=== PATIENT | female | born 2000 | race Two or more races ===

== ENCOUNTER 2018-08-12 23:27 | Observation (INO) | payer OTHER ==
[2018-08-13] MEDS ORDERED: METOCLOPRAMIDE HCL INJECTION 10 MG/2 ML VIAL IVPUSH STA (00:14)
[2018-08-13] MEDS ORDERED: SODIUM CHLORIDE 1,000 ML IV ONE (00:14)
[2018-08-13] MEDS ORDERED: IBUPROFEN 600 MG TABLET (FP) PO ONE (00:17)
--- NOTE | 2018-08-13 00:21 | PDOC ---
History of Present Illness - General Chief Complaint: Migraine Headache Stated Complaint: Migraine/Chest Pain Time Seen by Provider: 08/12/18 23:31 History Source: Patient Exam Limitations: No Limitations - History of Present Illness Initial Comments: 17 yo F w a pmh of migraines and scoliosis presents to the ER stating she has a migraine headache and chest pain. She reports that her symptoms began at 4 pm today. She began getting a headache and then her chest pain started. She states that she frequently gets these migraines and they are always associated with chest pain. Usually she is able to take a hot shower which makes her migraine go away. Today, However, she felt like she was in too much discomfort and couldn 't take a warm shower. She states the chest pain is not associated with nausea, vomiting, diaphoresis, or physical exertion. The chest pain comes on at rest out of the blue whenever she gets these migraines. This headache is not the worst headache of her life. She says that seeing light or hearing loud noise are painful for her and make her headache worse. She denies recent fevers, chills, infections, dysuria, frequency, urgency, back pain, SOB, difficulty breathing, abdominal pain, diarrhea, constipation, leg pain. PSH: Back surgery for scoliosis Allergies: NKA, NKDA Social Hx: Denies smoking, drinking, or other substance usage. Past History - Suicide/Smoking/Psychosocial Hx Smoking History: Never smoked Have you smoked in the past 12 months: No Information on smoking cessation initiated: No Hx Alcohol Use: No Drug/Substance Use Hx: No Review of Systems - Review of Systems Able to Perform ROS?: Yes Comments:: CONSTITUTIONAL: Absent: fever, no chills, no fatigue EYES: Absent: visual changes ENT: Absent: ear pain, no sore throat CARDIOVASCULAR: Present: Chest pain Absent: no palpitations RESPIRATORY: Absent: cough, no SOB GI: Absent: abdominal pain, no nausea, no vomiting, no constipation, no diarrhea GENITOURINARY: Absent: dysuria, no frequency, no hematuria MUSKULOSKELETAL: Absent: back pain, no arthralgia, no myalgia SKIN: Absent: rash NEURO: Present: Headache *Physical Exam - Vital Signs Last Vital Signs Temp Pulse Resp BP Pulse Ox 97.6 F 75 18 141/70 100 08/12/18 23:39 08/12/18 23:39 08/12/18 23:39 08/12/18 23:39 08/12/18 23:39 - Physical Exam Comments: GENERAL: Well-appearing, well-nourished. No apparent distress. HEENT: Normocephalic, atraumatic. PERRL, EOM intact. CARDIOVASCULAR: Normal S1, S2. Regular rate and rhythm. PULMONARY: Clear to auscultation bilaterally. ABDOMEN: Soft, non-distended, non-tender. EXTREMITIES: Normal ROM in all four extremities. No gross deformities. SKIN: Warm, dry. No rash NEUROLOGICAL: No focal neurological deficits. Moderate Sedation - Procedure Monitoring Vital Signs: Procedure Monitoring Vital Signs Temperature 97.6 F 08/12/18 23:39 Pulse Rate 75 08/12/18 23:39 Respiratory Rate 18 08/12/18 23:39 Blood Pressure 141/70 08/12/18 23:39 O2 Sat by Pulse Oximetry (%) 100 08/12/18 23:39 ED Treatment Course - LABORATORY CBC & Chemistry Diagram: 08/13/18 00:57 08/13/18 00:57 Medical Decision Making - Medical Decision Making 17 yo F w a pmh of migraines and scoliosis presents to the ER stating she has a migraine headache and chest pain. - Vitals WNL DDx IBNLT: Migraine vs tension vs cluster headache, SAH, Pseudotumor cerebri, ACS, MSK chest pain, malingering, costochondritis, pneumothorax. Plan: Cbc, Cmp, Cardiac profile, HCG, UA, EKG, IV hydration, reglan, benadryl, ibuprofen, re-assess. CBC shows elevated wbc to 12.1 with a neutrophilic predominance. I suspect this is a migraine headache. - Will get Trop and EKG to rule out cardio sources of the chest pain. - Giving patient Migraine cocktail and plan to re-assess her and see how she is doing afterwards. *DC/Admit/Observation/Transfer Diagnosis at time of Disposition: Migraine - Discharge Dispostion Disposition: HOME Condition at time of disposition: Improved Decision to Admit order: No - Referrals Referrals: Lai Johnson [Primary Care Provider] - Pablo Fischer MD [Staff Physician] - - Patient Instructions Printed Discharge Instructions: DI for Migraine, DI for Headache Additional Instructions: You came into the ER with a headache and chest pain. We believe you are having a migraine. We gave you some meds and you felt better. ' It is very important for you to follow up with a neurologist to figure out why you are getting these headaches. We are attaching the number of a neurologist for you to call and schedule an appointment with to figure out why you are experiencing these migraines. Please make sure to schedule an appointment in the next few days. Come back to the ER if your pain worsens, you get a fever, start vomiting, can' t eat or drink, or have any other new or worsening concerns. Thank you for coming to the [facility] ER. We hope you feel better soon! Print Language: SWISS - Post Discharge Activity
[2018-08-13] MEDS ORDERED: ACETAMINOPHEN 1000 MG/100 ML VIAL (NON FORMULARY) IVPB ONE (00:34)
[2018-08-13 01:31] LABS: BASO % 0.1 % (0-2.0); HEMATOCRIT 40.4 % (32.4-45.2); HEMOGLOBIN 13.7 GM/dL (10.7-15.3); LYMPH % 8.6 % (8-40); MCH 28.8 pg (25.7-33.7); MEAN CELL VOLUME 84.5 fl (80-96); MEAN PLT VOLUME 9.2 fl (7.5-11.1); NEUT % 86.3 % (42.8-82.8); PLATELET COUNT 328 K/MM3 (134-434); RBC 4.78 M/mm3 (3.60-5.2); RDW 13.4 % (11.6-15.6); WHITE BLOOD COUNT 12.1 K/mm3 (4.0-10.0)
--- NOTE | 2018-08-13 01:43 | PDOC ---
Attending Attestation - Resident Resident Name: Shahriar Soto - ED Attending Attestation I have performed the following: I have examined & evaluated the patient, The case was reviewed & discussed with the resident, I agree w/resident's findings & plan, Exceptions are as noted - HPI HPI: 08/13/18 01:40 17 F with h/o migraines presents to ED with headache and chest pain. Pt states that her headache started at 4pm today. It is global, progressively worsening. Denies thunderclap. Denies worst headache of life. Denies neck pain/stiffness. Denies F/C. Pt states the headache is typical of her usual migraines. Pt states she took an excedrin today but with no relief. States that warm showers often help but was unable to take one. Pt also notes chest pain localized to her midsternal region. She states she always has this chest pain with her migraines. Denies SOB. Denies pleuritic or exertional component to chest pain. Denies recent travel/immobilization. No OCP use. - Physicial Exam PE: 08/13/18 01:41 "GENERAL: Awake, alert, and fully oriented, in no acute distress. HEAD: No signs of trauma EYES: PERRLA, EOMI, sclera anicteric, conjunctiva clear ENT: Auricles normal inspection, hearing grossly normal, nares patent, oropharynx clear without exudates. Moist mucosa NECK: Nontender, no stepoffs, Normal ROM, supple, no lymphadenopathy, JVD, or masses LUNGS: Breath sounds equal, clear to auscultation bilaterally. No wheezes, and no crackles HEART: Regular rate and rhythm, normal S1 and S2, no murmurs, rubs or gallops ABDOMEN: Soft, nontender, normoactive bowel sounds. No guarding, no rebound. No masses EXTREMITIES: Normal range of motion, no edema. No clubbing or cyanosis. No cords, erythema, or tenderness NEUROLOGICAL: Cranial nerves II through XII intact. 5/5 strength and sensation in all extremities, Normal speech, normal gait, normal cerebellar function SKIN: Warm, Dry, normal turgor, no rashes or lesions noted. - Medical Decision Making 08/13/18 01:41 17 yo F with typical migraine headache and associated chest pain. Pt with no red flags for meningitis/SAH. Normal neuro exam. Pt also with chest pain that she says is typical for her migraines. PERC 0. Will obtain EKG and trop to r/o ACS, though very unlikely. - Labs, trop, UPT - EKG - IVF, tylenol, reglan - reassess 08/13/18 02:09 Pt signed out to overnight team, pending labs, UA, UPT, and re-evaluation.
[2018-08-13 02:33] LABS: ALBUMIN 3.9 g/dl (3.4-5.0); ALK PHOS 120 U/L (45-117); ANION GAP 9 MMOL/L (8-16); BILIRUBIN,TOTAL 0.3 mg/dL (0.2-1); BLOOD UREA NITROGEN 14 mg/dL (7-18); CALCIUM 9.1 mg/dL (8.5-10.1); CHLORIDE 107 mmol/L (98-107); CO2 23 mmol/L (21-32); CREATININE 0.7 mg/dL (0.55-1.3); GLUCOSE,RANDOM 113 mg/dL (74-106); POTASSIUM 3.9 mmol/L (3.5-5.1); SGOT/AST 28 U/L (15-37); SGPT/ALT 51 U/L (13-61); SODIUM 138 mmol/L (136-145); TOT PROT 7.5 g/dl (6.4-8.2)
[2018-08-13 02:58] LABS: URINE APPEARANCE CLEAR; URINE BILIRUBIN NEGATIVE (<2.0 mg/dL); URINE COLOR YELLOW; URINE GLUCOSE (UA) NEGATIVE (NEGATIVE); URINE KETONE 1+ (NEGATIVE); URINE LEUK ESTERASE NEGATIVE (NEGATIVE); URINE NITRITE NEGATIVE (NEGATIVE); URINE PROTEIN 1+ (NEGATIVE); URINE UROBILINOGEN NEGATIVE mg/dL (0.2-1.0)
--- NOTE | 2018-08-13 02:59 | PDOC ---
*Physical Exam - Vital Signs Last Vital Signs Temp Pulse Resp BP Pulse Ox 97.6 F 75 18 141/70 100 08/12/18 23:39 08/12/18 23:39 08/12/18 23:39 08/12/18 23:39 08/12/18 23:39 <Deandre Felix - Last Filed: 08/13/18 06:08> - Vital Signs Last Vital Signs Temp Pulse Resp BP Pulse Ox 97.6 F 75 18 141/70 100 08/12/18 23:39 08/12/18 23:39 08/12/18 23:39 08/12/18 23:39 08/12/18 23:39 <Shasta Hutson - Last Filed: 08/13/18 06:27> ED Treatment Course - LABORATORY CBC & Chemistry Diagram: 08/13/18 00:57 08/13/18 01:49 - ADDITIONAL ORDERS Additional order review: Laboratory Results 08/13/18 08/13/18 08/13/18 02:30 01:49 01:49 Sodium 138 Potassium 3.9 Chloride 107 Carbon Dioxide 23 Anion Gap 9 BUN 14 Creatinine 0.7 Creat Clearance w eGFR > 60 Random Glucose 113 H Calcium 9.1 Total Bilirubin 0.3 AST 28 ALT 51 Alkaline Phosphatase 120 H Creatine Kinase Troponin I < 0.02 Total Protein 7.5 Albumin 3.9 Urine Color Yellow Urine Appearance Clear Urine pH 7.0 Ur Specific [place] 1.032 Urine Protein 1+ H Urine Glucose (UA) Negative Urine Ketones 1+ H Urine Blood Negative Urine Nitrite Negative Urine Bilirubin Negative Urine Urobilinogen Negative Ur Leukocyte Esterase Negative Urine WBC (Auto) 10 Urine RBC (Auto) 11 Ur Epithelial Cells Few Urine Mucus Moderate Urine HCG, Qual Negative 08/13/18 00:57 Sodium Cancelled Potassium Cancelled Chloride Cancelled Carbon Dioxide Cancelled Anion Gap Cancelled BUN Cancelled Creatinine Cancelled Creat Clearance w eGFR Cancelled Random Glucose Cancelled Calcium Cancelled Total Bilirubin Cancelled AST Cancelled ALT Cancelled Alkaline Phosphatase Cancelled Creatine Kinase Cancelled Troponin I Cancelled Total Protein Cancelled Albumin Cancelled Urine Color Urine Appearance Urine pH Ur Specific [place] Urine Protein Urine Glucose (UA) Urine Ketones Urine Blood Urine Nitrite Urine Bilirubin Urine Urobilinogen Ur Leukocyte Esterase Urine WBC (Auto) Urine RBC (Auto) Ur Epithelial Cells Urine Mucus Urine HCG, Qual 08/13/18 00:57 RBC 4.78 MCV 84.5 MCHC 34.0 RDW 13.4 MPV 9.2 Neutrophils % 86.3 H Lymphocytes % 8.6 Monocytes % 5.0 Eosinophils % 0.0 Basophils % 0.1 - RADIOLOGY Radiology Studies Ordered: Category Date Time Status HEAD CT WITHOUT CONTRAST [CT] Stat CT Scan 08/13/18 02:53 Taken - Medications Given in the ED: ED Medications Discontinued Medications Generic Name Dose Route Start Last Admin Trade Name Freq PRN Reason Stop Dose Admin Acetaminophen 1,000 mg 08/13/18 00:34 08/13/18 00:40 Ofirmev Injection - IVPB 08/13/18 00:35 1,000 mg ONCE ONE Administration Diphenhydramine HCl 25 mg 08/13/18 00:15 08/13/18 00:30 Benadryl Injection - IVPUSH 08/13/18 00:16 25 mg ONCE ONE Administration Sodium Chloride 1,000 mls @ 1,000 mls/hr 08/13/18 00:14 08/13/18 01:31 Normal Saline - IV 08/13/18 01:13 1,000 mls/hr .Q1H ONE Administration Ibuprofen 600 mg 08/13/18 00:17 08/13/18 00:35 Motrin - PO 08/13/18 00:18 600 mg ONCE ONE Administration Metoclopramide HCl 10 mg 08/13/18 00:14 08/13/18 00:30 Reglan Injection - IVPUSH 08/13/18 00:15 10 mg ONCE STA Administration <Deandre Felix - Last Filed: 08/13/18 06:08> - LABORATORY CBC & Chemistry Diagram: 08/13/18 00:57 08/13/18 01:49 - ADDITIONAL ORDERS Additional order review: Laboratory Results 08/13/18 08/13/18 08/13/18 01:49 01:49 00:57 Sodium 138 Cancelled Potassium 3.9 Cancelled Chloride 107 Cancelled Carbon Dioxide 23 Cancelled Anion Gap 9 Cancelled BUN 14 Cancelled Creatinine 0.7 Cancelled Creat Clearance w eGFR > 60 Cancelled Random Glucose 113 H Cancelled Calcium 9.1 Cancelled Total Bilirubin 0.3 Cancelled AST 28 Cancelled ALT 51 Cancelled Alkaline Phosphatase 120 H Cancelled Creatine Kinase Cancelled Troponin I < 0.02 Cancelled Total Protein 7.5 Cancelled Albumin 3.9 Cancelled 08/13/18 00:57 RBC 4.78 MCV 84.5 MCHC 34.0 RDW 13.4 MPV 9.2 Neutrophils % 86.3 H Lymphocytes % 8.6 Monocytes % 5.0 Eosinophils % 0.0 Basophils % 0.1 - Medications Given in the ED: ED Medications Discontinued Medications Generic Name Dose Route Start Last Admin Trade Name Desirae PRN Reason Stop Dose Admin Sodium Chloride 1,000 mls @ 1,000 mls/hr 08/13/18 00:14 08/13/18 01:31 Normal Saline - IV 08/13/18 01:13 1,000 mls/hr .Q1H ONE Administration <Shasta Hutson - Last Filed: 08/13/18 06:27> Medical Decision Making - Critical Care Time Total Critical Care Time (minutes): 30 Critical Care Statement: The care of this patient involved high complexity decision making to prevent further life threatening deterioration of the patient 's condition and/or to evaluate & treat vital organ system(s) failure or risk of failure. - Medical Decision Making 08/13/18 02:57 Pt was signed out to us for headache. Pt is not feeling better, even tho this is her usual ALVARES, reportedly. She will have hcg and then we will send her for a CT head. She also has normal labs here. 08/13/18 03:31 HCG is negative; we took her to head CT. 08/13/18 04:44 Patient Name: ASHLEE HAMMOND THIS IS A PRELIMINARY REPORT FROM [facility] DATE OF SERVICE: 2018-08-13 03:36:27 IMAGES: 183 EXAM: HEAD CT WITHOUT CONTRAST HISTORY: 17-Year-Old Female Headache. COMPARISON: None. FINDINGS: No acute intracranial hemorrhage mass effect or midline shift. Preston-white differentiation is maintained. Ventricles sulci and basilar cisterns appear unremarkable. Calvarium is intact. The sinuses and mastoid air cells are clear. IMPRESSION No acute intracranial hemorrhage mass effect or midline shift. 08/13/18 06:26 Pt had an opening CSF pressure of 39; too high. We removed 6 ml CSF. Pt will be admitted to ER observation vs observation and she will get a neuro consult. <Shasta Hutson - Last Filed: 08/13/18 06:27> *DC/Admit/Observation/Transfer <Deandre Felix - Last Filed: 08/13/18 06:08> <Shasta Hutson - Last Filed: 08/13/18 06:27> Diagnosis at time of Disposition: Migraine - Discharge Dispostion Disposition: HOME Condition at time of disposition: Improved - Referrals Referrals: Pablo Fischer MD [Staff Physician] - Lai Johnson [Primary Care Provider] - - Patient Instructions Printed Discharge Instructions: DI for Migraine, DI for Headache Additional Instructions: You came into the ER with a headache and chest pain. We believe you are having a migraine. We gave you some meds and you felt better. ' It is very important for you to follow up with a neurologist to figure out why you are getting these headaches. We are attaching the number of a neurologist for you to call and schedule an appointment with to figure out why you are experiencing these migraines. Please make sure to schedule an appointment in the next few days. Come back to the ER if your pain worsens, you get a fever, start vomiting, can' t eat or drink, or have any other new or worsening concerns. Thank you for coming to the [facility] ER. We hope you feel better soon! Print Language: CITIZEN OF [place] - Post Discharge Activity Procedures - Lumbar Puncture Indication: Headache CT Scan: Yes Betadine Prep: Yes Position: Right lateral decubitus Site: L3-L4 Local Anesthesia: 1% Lidocaine with epi Volume(ml): 4 Lumbar Puncture Kit: Adult Needle Size(gauge): 22 Opening Pressure(mmHg): 39 Traumatic Tap: No Tubes Obtained: 4 Clear Fluid: Yes Complications: No <Deandre Felix - Last Filed: 08/13/18 06:08>
[2018-08-13 03:00] LABS: HCG,QUALITATIVE URINE Negative
[2018-08-13 03:12] LABS: EPI CELLS FEW /HPF (FEW); URINE MUCUS MODERATE
[2018-08-13] MEDS ORDERED: LIDOCAINE HCL 1%, 10 MG/ML (20ML VIAL) ONE (05:51)
[2018-08-13 07:18] LABS: CSF APPEARANCE CLEAR; CSF COLOR COLORLESS; CSF WBC 0
[2018-08-13 07:19] LABS: CSF APPEARANCE CLEAR; CSF COLOR COLORLESS; CSF WBC 0
--- NOTE | 2018-08-13 07:21 | PDOC ---
*Physical Exam - Vital Signs Last Vital Signs Temp Pulse Resp BP Pulse Ox 98.0 F 89 19 121/65 100 08/13/18 06:36 08/13/18 06:36 08/13/18 06:36 08/13/18 06:36 08/13/18 06:36 ED Treatment Course - LABORATORY CBC & Chemistry Diagram: 08/13/18 00:57 08/13/18 01:49 - ADDITIONAL ORDERS Additional order review: Laboratory Results 08/13/18 08/13/18 08/13/18 06:00 06:00 02:30 Sodium Potassium Chloride Carbon Dioxide Anion Gap BUN Creatinine Creat Clearance w eGFR Random Glucose Calcium Total Bilirubin AST ALT Alkaline Phosphatase Creatine Kinase Troponin I Total Protein Albumin Urine Color Yellow Urine Appearance Clear Urine pH 7.0 Ur Specific [place] 1.032 Urine Protein 1+ H Urine Glucose (UA) Negative Urine Ketones 1+ H Urine Blood Negative Urine Nitrite Negative Urine Bilirubin Negative Urine Urobilinogen Negative Ur Leukocyte Esterase Negative Urine WBC (Auto) 10 Urine RBC (Auto) 11 Ur Epithelial Cells Few Urine Mucus Moderate Urine HCG, Qual Negative CSF Appearance Clear Clear CSF Color Colorless Colorless CSF WBC 0 0 CSF RBC 166 138 CSF Neutrophils No Result Required. No Result Required. CSF Lymphocytes No Result Required. No Result Required. CSF Eosinophils No Result Required. No Result Required. CSF Basophils No Result Required. No Result Required. CSF Macrophages No Result Required. No Result Required. CSF Plasma Cells No Result Required. No Result Required. CSF Diff Comment No Result Required. No Result Required. CSF Comment No Result Required. No Result Required. 08/13/18 08/13/18 08/13/18 01:49 01:49 00:57 Sodium 138 Cancelled Potassium 3.9 Cancelled Chloride 107 Cancelled Carbon Dioxide 23 Cancelled Anion Gap 9 Cancelled BUN 14 Cancelled Creatinine 0.7 Cancelled Creat Clearance w eGFR > 60 Cancelled Random Glucose 113 H Cancelled Calcium 9.1 Cancelled Total Bilirubin 0.3 Cancelled AST 28 Cancelled ALT 51 Cancelled Alkaline Phosphatase 120 H Cancelled Creatine Kinase Cancelled Troponin I < 0.02 Cancelled Total Protein 7.5 Cancelled Albumin 3.9 Cancelled Urine Color Urine Appearance Urine pH Ur Specific [place] Urine Protein Urine Glucose (UA) Urine Ketones Urine Blood Urine Nitrite Urine Bilirubin Urine Urobilinogen Ur Leukocyte Esterase Urine WBC (Auto) Urine RBC (Auto) Ur Epithelial Cells Urine Mucus Urine HCG, Qual CSF Appearance CSF Color CSF WBC CSF RBC CSF Neutrophils CSF Lymphocytes CSF Eosinophils CSF Basophils CSF Macrophages CSF Plasma Cells CSF Diff Comment CSF Comment 08/13/18 00:57 RBC 4.78 MCV 84.5 MCHC 34.0 RDW 13.4 MPV 9.2 Neutrophils % 86.3 H Lymphocytes % 8.6 Monocytes % 5.0 Eosinophils % 0.0 Basophils % 0.1 - Medications Given in the ED: ED Medications Discontinued Medications Generic Name Dose Route Start Last Admin Trade Name Desirae PRN Reason Stop Dose Admin Acetaminophen 1,000 mg 08/13/18 00:34 08/13/18 00:40 Ofirmev Injection - IVPB 08/13/18 00:35 1,000 mg ONCE ONE Administration Diphenhydramine HCl 25 mg 08/13/18 00:15 08/13/18 00:30 Benadryl Injection - IVPUSH 08/13/18 00:16 25 mg ONCE ONE Administration Sodium Chloride 1,000 mls @ 1,000 mls/hr 08/13/18 00:14 08/13/18 01:31 Normal Saline - IV 08/13/18 01:13 1,000 mls/hr .Q1H ONE Administration Ibuprofen 600 mg 08/13/18 00:17 08/13/18 00:35 Motrin - PO 08/13/18 00:18 600 mg ONCE ONE Administration Metoclopramide HCl 10 mg 08/13/18 00:14 08/13/18 00:30 Reglan Injection - IVPUSH 08/13/18 00:15 10 mg ONCE STA Administration Medical Decision Making - Medical Decision Making 08/13/18 07:[address] Felix. Patient is a 17 yo female who reports repeat migraines over several months. Todays was different as it did not go away. Patient was evaluated with CT (negative) and LP. LP opening pressure 37. Patient now feeling relief. Will consult neuro once LP results return. 08/13/18 09:27 Dr. Jane discussed patient with Dr. Fischer (Neurology). Patient ok to d/c if symptoms have resolved from his standpoint on diamox 500 BID with outpatient follow-up. Patient noted to have persistent headache. Will admit patient for further headache control / neurology evaluation. Discussed with Dr. Fischer who agrees and suggests IV hydration as well. *DC/Admit/Observation/Transfer Diagnosis at time of Disposition: Pseudotumor cerebri, Persistent headaches Migraine Qualifiers: Migraine type: unspecified Status migrainosus presence: without status migrainosus Intractability: not intractable Qualified Code(s): G43.909 - Migraine, unspecified, not intractable, without status migrainosus - Discharge Dispostion Condition at time of disposition: Improved Decision to Admit order: Yes - Referrals Referrals: Pablo Fischer MD [Staff Physician] - Lai Johnson [Primary Care Provider] - - Patient Instructions Printed Discharge Instructions: DI for Migraine, DI for Headache Additional Instructions: You came into the ER with a headache and chest pain. We believe you are having a migraine. We gave you some meds and you felt better. ' It is very important for you to follow up with a neurologist to figure out why you are getting these headaches. We are attaching the number of a neurologist for you to call and schedule an appointment with to figure out why you are experiencing these migraines. Please make sure to schedule an appointment in the next few days. Come back to the ER if your pain worsens, you get a fever, start vomiting, can' t eat or drink, or have any other new or worsening concerns. Thank you for coming to the [facility] ER. We hope you feel better soon! Print Language: [place] CITIZEN - Post Discharge Activity
[2018-08-13 07:23] LABS: BF GLUCOSE (CSF ONLY) 75 mg/dL (40-70)
[2018-08-13 07:34] LABS: BF GLUCOSE (CSF ONLY) 75 mg/dL (40-70)
--- NOTE | 2018-08-13 08:41 | EKG ---
Test Reason : Blood Pressure : / mmHG Vent. Rate : 075 BPM Atrial Rate : 075 BPM P-R Int : 142 ms QRS Dur : 094 ms QT Int : 392 ms P-R-T Axes : 027 007 011 degrees QTc Int : 437 ms NORMAL SINUS RHYTHM T WAVE ABNORMALITY, CONSIDER ANTERIOR ISCHEMIA ABNORMAL ECG NO PREVIOUS ECGS AVAILABLE Confirmed by CAROL HURD, DEWAYNE ([id number]) on 08/13/2018 8:41:33 AM Referred By: Confirmed By:DEWAYNE MEDINA MD
[2018-08-13] MEDS ORDERED: acetaZOLAMIDE 250 MG TABLET PO ONE (09:31)
[2018-08-13] MEDS ORDERED: SODIUM CHLORIDE 1,000 ML IV SCH (09:45)
[2018-08-13] MEDS ORDERED: ACETAMINOPHEN 325 MG TABLET (FP) PO PRN (10:20)
--- NOTE | 2018-08-13 10:23 | HP ---
Admitting History and Physical - Primary Care Physician PCP: Lai Johnson - Admission Chief Complaint: I have a migraine History of Present Illness: Miss Garcia is a very pleasant 17 year old female who comes in with a migraine headache. She has a history of migraine headaches and when she has them they are usually accompanied by chest pain. They normally last a day and then resolve. She says the migraine began two days ago. She says her migraine is global, which is typical for her migraine pain. She experienced lightheadedness , photophobia, phonophobia, chest pain, and nausea associated with it. She said at first the pain was minimal but it escalated until it was a 10/10. After 48 hours it had not improved and she came in for further evaluation. She denies passing out, shortness of breath, coughing, vomiting, diarrhea, constipation, difficulty or pain on urination, swelling, weakness, or tingling associated with the migraine. She received IV tylenol, reglan, and motrin for the ALVARES. She also underwent an LP with elevated pressures. Her migraine is now improved but still a 6/10. Neurology recommended starting diamox which she also received in the ED. 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 Reproductive: Yes: Polycystic Ovary Syndrome Musculoskeletal: Yes: Other (scoliosis) - Past Surgical History Additional Past Surgical History: scoliosis repair - Smoking History Smoking history: Never smoked Have you smoked in the past 12 months: No - Alcohol/Substance Use Hx Alcohol Use: No History of Substance Use: reports: None - Social History ADL: Independent History of Recent Travel: No Home Medications - Allergies Allergies/Adverse Reactions: Allergies Allergy/AdvReac Type Severity Reaction Status Date / Time No Known Allergies Allergy Verified 08/13/18 03:52 - Home Medications Home Medications (free text): metformin 500mg qpm Family Disease History - Family Disease History Family Disease History: Other: Father (HTN), Mother (HTN) Review of Systems Findings/Remarks: Full review of systems obtained, as per HPI and otherwise negative Physical Examination Vital Signs: Vital Signs Temperature 36.7 C 08/13/18 06:36 Pulse Rate 89 08/13/18 06:36 Respiratory Rate 19 08/13/18 06:36 Blood Pressure 121/65 08/13/18 06:36 O2 Sat by Pulse Oximetry (%) 100 08/13/18 06:36 Constitutional: Yes: No Distress, Calm, Obese Eyes: Yes: Conjunctiva Clear, EOM Intact, PERRL HENT: Yes: Atraumatic, Normocephalic Cardiovascular: Yes: Regular Rate and Rhythm. No: Gallop, Murmur, Rub Respiratory: Yes: Regular, CTA Bilaterally. No: Rales, Rhonchi, Wheezes Gastrointestinal: Yes: Normal Bowel Sounds, Soft. No: Distention, Tenderness Extremities: Yes: WNL Edema: No Labs: CBC, BMP 08/13/18 00:57 08/13/18 01:49 Imaging - Results Cat Scan: Report Reviewed Problem List - Problems (1) Migraine Assessment/Plan: -patient admitted under observation -started on diamox -improving but still present -plan for discharge later today or early tomorrow -neurology consulted and case discussed Code(s): G43.909 - MIGRAINE, UNSP, NOT INTRACTABLE, WITHOUT STATUS MIGRAINOSUS Qualifiers: Migraine type: without aura Status migrainosus presence: without status migrainosus Intractability: not intractable Qualified Code(s): G43.009 - Migraine without aura, not intractable, without status migrainosus (2) PCOS (polycystic ovarian syndrome) Assessment/Plan: -continue daily metformin Code(s): E28.2 - POLYCYSTIC OVARIAN SYNDROME
[2018-08-13] MEDS ORDERED: ACETAMINOPHEN/CAFFEINE/BUTALBITAL 1 TAB PO PRN (11:15)
--- NOTE | 2018-08-13 11:19 | CONSULT ---
Consult - text type - Consultation Consultation Note: Neurology Chief Complaint: I have a migraine History of Present Illness: 17 year old female who comes in with headache. She has a history of migraine headaches and when she has them they are usually accompanied by chest pain. They normally last a day and then resolve. She says the headache began two days prior to admission. She says her pain is global, which is typical for her headache. She experienced lightheadedness, photophobia, phonophobia, chest pain , and nausea associated with it. She said at first the pain was minimal but it escalated until it was a 10/10. After 48 hours it had not improved and she came in for further evaluation. She denies passing out, shortness of breath, coughing , vomiting, diarrhea, constipation, difficulty or pain on urination, swelling, weakness, or tingling associated with the migraine. She received IV tylenol, reglan, and motrin for the ALVARES. She also underwent an LP with elevated pressures to 39 per my conversation with ER. Diagnosed with benign intracranial hypertension and started on Diamox. Though some improvement, not fully at baseline. Advised ER to add Fioricet this AM when she was seen at bedside. 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 Reproductive: Yes: Polycystic Ovary Syndrome Musculoskeletal: Yes: Other (scoliosis) - Past Surgical History Additional Past Surgical History: scoliosis repair - Smoking History Smoking history: Never smoked Have you smoked in the past 12 months: No - Alcohol/Substance Use Hx Alcohol Use: No History of Substance Use: reports: None - Social History ADL: Independent History of Recent Travel: No Home Medications - Allergies Allergies/Adverse Reactions: Allergies Allergy/AdvReac Type Severity Reaction Status Date / Time No Known Allergies Allergy Verified 08/13/18 03:52 - Home Medications Home Medications (free text): metformin 500mg qpm Family Disease History - Family Disease History Family Disease History: Other: Father (HTN), Mother (HTN) Review of Systems Findings/Remarks: Full review of systems obtained, as per HPI and otherwise negative Physical Examination Vital Signs Temperature 98.8 F 08/13/18 10:31 Pulse Rate 79 08/13/18 10:31 Respiratory Rate 18 08/13/18 10:31 Blood Pressure 116/51 L 08/13/18 10:31 O2 Sat by Pulse Oximetry (%) 100 08/13/18 10:31 Constitutional: Yes: No Distress, Calm, Obese Eyes: Yes: Conjunctiva Clear, EOM Intact, PERRL HENT: Yes: Atraumatic, Normocephalic Cardiovascular: Yes: Regular Rate and Rhythm. No: Gallop, Murmur, Rub Respiratory: Yes: Regular, CTA Bilaterally. No: Rales, Rhonchi, Wheezes Gastrointestinal: Yes: Normal Bowel Sounds, Soft. No: Distention, Tenderness Extremities: Yes: WNL Edema: No Labs: CBCD WBC 12.1 K/mm3 (4.0-10.0) H 08/13/18 00:57 RBC 4.78 M/mm3 (3.60-5.2) 08/13/18 00:57 Hgb 13.7 GM/dL (10.7-15.3) 08/13/18 00:57 Hct 40.4 % (32.4-45.2) 08/13/18 00:57 MCV 84.5 fl (80-96) 08/13/18 00:57 MCHC 34.0 g/dl (32.0-36.0) 08/13/18 00:57 RDW 13.4 % (11.6-15.6) 08/13/18 00:57 Plt Count 328 K/MM3 (134-434) 08/13/18 00:57 MPV 9.2 fl (7.5-11.1) 08/13/18 00:57 CMP Sodium 138 mmol/L (136-145) 08/13/18 01:49 Potassium 3.9 mmol/L (3.5-5.1) 08/13/18 01:49 Chloride 107 mmol/L (98-107) 08/13/18 01:49 Carbon Dioxide 23 mmol/L (21-32) 08/13/18 01:49 Anion Gap 9 MMOL/L (8-16) 08/13/18 01:49 BUN 14 mg/dL (7-18) 08/13/18 01:49 Creatinine 0.7 mg/dL (0.55-1.3) 08/13/18 01:49 Creat Clearance w eGFR > 60 (>60) 08/13/18 01:49 Random Glucose 113 mg/dL (74-106) H 08/13/18 01:49 Calcium 9.1 mg/dL (8.5-10.1) 08/13/18 01:49 Total Bilirubin 0.3 mg/dL (0.2-1) 08/13/18 01:49 AST 28 U/L (15-37) 08/13/18 01:49 ALT 51 U/L (13-61) 08/13/18 01:49 Alkaline Phosphatase 120 U/L (45-117) H 08/13/18 01:49 Total Protein 7.5 g/dl (6.4-8.2) 08/13/18 01:49 Albumin 3.9 g/dl (3.4-5.0) 08/13/18 01:49 CARDIAC ENZYMES Creatine Kinase Cancelled 08/13/18 00:57 Troponin I < 0.02 ng/ml (0.00-0.05) 08/13/18 01:49 Diagnostics Cat Scan: Report Reviewed Assessment/Plan Miss Garcia is a very pleasant 17 year old female who comes in with a migraine headache. She has a history of migraine headaches and when she has them they are usually accompanied by chest pain. They normally last a day and then resolve. She says the migraine began two days ago. She says her migraine is global, which is typical for her migraine pain. She experienced lightheadedness , photophobia, phonophobia, chest pain, and nausea associated with it. She said at first the pain was minimal but it escalated until it was a 10/10. After 48 hours it had not improved and she came in for further evaluation. She denies passing out, shortness of breath, coughing, vomiting, diarrhea, constipation, difficulty or pain on urination, swelling, weakness, or tingling associated with the migraine. She received IV tylenol, reglan, and motrin for the ALVARES.She also underwent an LP with elevated pressures to 39 per my conversation with ER. Diagnosed with benign intracranial hypertension and started on Diamox. Though some improvement, not fully at baseline. Advised ER to add Fioricet this AM when she was seen at bedside. If improved later today, can discharge. Hydration recommended, IV fluids if needed. Continue metformin for PCOS. Headache prevention discussed, avoid lights and noise. Cogntive rest recommended.
[2018-08-13 12:26] VITALS: BMI 34.1
[2018-08-13] MEDS ORDERED: FLU VACCINE QUAD 60 MCG/0.5 ML (MDV 18-19) IM ONE (12:26)
[2018-08-13 15:43] VITALS: BP 119/56; PULSE 110; TEMP 97.8
--- NOTE | 2018-08-13 16:59 | DS ---
Physical Examination Vital Signs: Vital Signs Temperature 36.6 C 08/13/18 15:41 Pulse Rate 110 H 08/13/18 15:41 Respiratory Rate 18 08/13/18 15:41 Blood Pressure 119/56 L 08/13/18 15:41 O2 Sat by Pulse Oximetry (%) 100 08/13/18 12:16 Labs: CBC, BMP 08/13/18 00:57 08/13/18 01:49 Discharge Summary Reason For Visit: PERSISTANT HEADACHES,BENIGN INTRACRANIAL HYPERTENS Current Active Problems Migraine (Acute) PCOS (polycystic ovarian syndrome) (Acute) Persistent headaches (Acute) Pseudotumor cerebri (Acute) Hospital Course: Please refer to H&P from today for history and physical exam. Patient was admit under observation for migraines. She was seen by neurology and continued on diamox. She was hydrated with IVF. Currently her migraine is resolved and she is safe for discharge with follow up with her PCP and Dr Fischer. Condition: Good - Instructions Diet, Activity, Other Instructions: You came into the ER with a headache and chest pain. You were having a migraine and you were admitted under observation and treated. You are safe for discharge and prescriptions were sent to your pharmacy. It is very important for you to follow up with a neurologist to figure out why you are getting these headaches. We are attaching the number of a neurologist for you to call and schedule an appointment with to figure out why you are experiencing these migraines. Please make sure to schedule an appointment in the next few days. Come back to the ER if your pain worsens, you get a fever, start vomiting, can' t eat or drink, or have any other new or worsening concerns. Thank you for coming to [facility]. We hope you feel better soon! Referrals: Pablo Fischer MD [Staff Physician] - Lai Johnson [Primary Care Provider] - Disposition: HOME - Home Medications Comprehensive Discharge Medication List: Ambulatory Orders Acetaminophen/Caffeine/Butalb [Fioricet -] 1 tablet PO Q4H PRN #30 tablet MDD 6 tablets 08/13/18 acetaZOLAMIDE [Diamox -] 500 mg PO BID #120 tablet 08/13/18 metFORMIN HCL [Glucophage -] 500 mg PO DAILY@1900 tablet 08/13/18
[2018-08-13] MEDS ORDERED: metFORMIN HCL 500 MG TABLET (FP) PO SCH (19:00)
[2018-08-13] MEDS ORDERED: acetaZOLAMIDE 250 MG TABLET PO SCH (22:00)
== END 2018-08-13 18:12 | disposition home or self-care (01) ==
LOC: JER 23:27 → JERBED 08-13 09:34 → J5S 08-13 11:26
PROVIDERS: ADMIT Internal Medicine; ATTEND Internal Medicine
PROC: 3E033NZ Introduction of Analgesics, Hypnotics, Sedatives into Peripheral Vein, Percutaneous Approach (ICD-10-PCS; principal; 2018-08-13)
PROC: 3E033GC Introduction of Other Therapeutic Substance into Peripheral Vein, Percutaneous Approach (ICD-10-PCS; 2018-08-13)
PROC: 3E0337Z Introduction of Electrolytic and Water Balance Substance into Peripheral Vein, Percutaneous Approach (ICD-10-PCS; 2018-08-13)
PROC: 3E0234Z Introduction of Serum, Toxoid and Vaccine into Muscle, Percutaneous Approach (ICD-10-PCS; 2018-08-13)
DX: G43.009 Migraine without aura, not intractable, without status migrainosus (principal); G44.52 New daily persistent headache (NDPH); E28.2 Polycystic ovarian syndrome; H05.119 Granuloma of unspecified orbit; G93.2 Benign intracranial hypertension; Z23 Encounter for immunization
CPT/HCPCS: 36415; 70450-TC; 80053; 81003; 81015; 82945; 84157; 84484; 84703; 85025; 87070; 87205; 87529; 90471; 90688; 93005; 93010; 96361; 96374; 96375; 99284-25; G0378; J0131; J7030

== ENCOUNTER 2018-08-24 18:25 | Observation (INO) | payer OTHER ==
[2018-08-24] MEDS ORDERED: SODIUM CHLORIDE 1,000 ML IV STA (18:37)
--- NOTE | 2018-08-24 18:37 | PDOC ---
Rapid Medical Evaluation Chief Complaint: Migraine Headache Time Seen by Provider: 08/24/18 18:36 Medical Evaluation: Allergies Allergy/AdvReac Type Severity Reaction Status Date / Time No Known Allergies Allergy Verified 08/13/18 03:52 08/24/18 18:36 I performed a brief in-person evaluation of this patient. Chief complaint is: Migraine and chest pain, states always has chest pain with migraines. +Photophobia. Pertinent physical exam findings include: No focal neurologic deficits. I have ordered the following: Basic labs, EKG, Reglan/Benadryl Patient will proceed to the ED for further evaluation. Discharge Disposition - Diagnosis Migraine Qualifiers: Migraine type: unspecified - Discharge Dispostion Condition at time of disposition: Stable - Referrals - Patient Instructions - Post Discharge Activity
[2018-08-24] MEDS ORDERED: METOCLOPRAMIDE HCL INJECTION 10 MG/2 ML VIAL IVPUSH ONE (18:38)
[2018-08-24 18:40] VITALS: BMI 33.9
[2018-08-24 19:25] LABS: BASO % 0.1 % (0-2.0); HEMATOCRIT 41.4 % (32.4-45.2); HEMOGLOBIN 13.7 GM/dL (10.7-15.3); LYMPH % 6.6 % (8-40); MCH 28.3 pg (25.7-33.7); MEAN CELL VOLUME 85.5 fl (80-96); MEAN PLT VOLUME 9.4 fl (7.5-11.1); MONO % 3.3 % (3.8-10.2); PLATELET COUNT 256 K/MM3 (134-434); RBC 4.84 M/mm3 (3.60-5.2); RDW 13.4 % (11.6-15.6); WHITE BLOOD COUNT 14.3 K/mm3 (4.0-10.0)
[2018-08-24 20:30] LABS: ALBUMIN 4.4 g/dl (3.4-5.0); ALK PHOS 132 U/L (45-117); ANION GAP 13 MMOL/L (8-16); BILIRUBIN,TOTAL 0.3 mg/dL (0.2-1); BLOOD UREA NITROGEN 15 mg/dL (7-18); CALCIUM 9.5 mg/dL (8.5-10.1); CHLORIDE 106 mmol/L (98-107); CO2 22 mmol/L (21-32); CREATININE 0.6 mg/dL (0.55-1.3); GLUCOSE,RANDOM 138 mg/dL (74-106); POTASSIUM 3.9 mmol/L (3.5-5.1); SGOT/AST 21 U/L (15-37); SGPT/ALT 46 U/L (13-61); SODIUM 140 mmol/L (136-145)
[2018-08-24] MEDS ORDERED: KETOROLAC TROMETHAMINE 30 MG/1 ML VIAL IVPUSH ONE (21:02)
[2018-08-24] MEDS ORDERED: ACETAMINOPHEN/CAFFEINE/BUTALBITAL 1 TAB PO ONE (21:05)
[2018-08-24] MEDS ORDERED: KETOROLAC TROMETHAMINE 30 MG/1 ML VIAL ONE (21:44)
[2018-08-24] MEDS ORDERED: ACETAMINOPHEN/CAFFEINE/BUTALBITAL 1 TAB ONE (21:44)
[2018-08-24] MEDS ORDERED: METOCLOPRAMIDE HCL INJECTION 10 MG/2 ML VIAL ONE (21:44)
--- NOTE | 2018-08-24 21:56 | PDOC ---
History of Present Illness - General Chief Complaint: Migraine Headache Stated Complaint: MIGRAINE HEADACHE Time Seen by Provider: 08/24/18 18:36 History Source: Patient, Old Records Exam Limitations: No Limitations - History of Present Illness Initial Comments: 08/24/18 21:07 HISTORY OF PRESENT ILLNESS: 17-year-old female with past medical history of PCOS , migraines, pseudotumor cerebri presents emergency Department for headache and chest pain throughout the day today. Patient states this is her usual migraine pattern where she is diffuse chest pain, with an escalating headache. Patient currently rates her pain 8/10 and reports 1 episode of nonbilious nonbloody vomiting. Patient reports she was seen and evaluated here when she was diagnosed with a pseudotumor. Patient was. We taking Diamox and Fioricet at home but is only taking one Diamox since discharge which is that approximately 3 :00 this afternoon. Patient denies any blurry vision, dizziness No recent travel or sick contacts. PAST MEDICAL HISTORY: PCOS, Migraines, pseudotumor SURGICAL HISTORY: Denies ALLERGIES: No known drug allergies REVIEW OF SYSTEMS General/Constitutional: Denies fever or chills. Denies weakness, weight change. HEENT: Denies change in vision. Denies ear pain or discharge. Denies sore throat. Cardiovascular: Diffuse chest pain. Denies shortness of breath. Respiratory: Denies cough, wheezing, or hemoptysis. Gastrointestinal: Denies nausea, vomiting, diarrhea or constipation. Denies rectal bleeding. Genitourinary: Denies dysuria, frequency, or change in urination. Musculoskeletal: Denies joint or muscle swelling or pain. Denies neck or back pain. Skin and breasts: Denies rash or easy bruising. Neurologic: Global headache. Denies vertigo, loss of consciousness, or loss of sensation. Psychiatric: Denies depression or anxiety. Endocrine: Denies increased thirst. Denies abnormal weight change. Hematologic/Lymphatic: Denies anemia, easy bleeding, or history of blood clots. Allergic/Immunologic: Denies hives or skin allergy. Denies latex allergy. PHYSICAL EXAM General Appearance: Well-appearing, appropriately dressed. No apparent distress , no intoxication. HEENT: EOMI, PERRLA, normal ENT inspection, normal voice, TMs normal, pharynx normal. No conjunctival pallor. (+)photophobia. No scleral icterus. Neck: Supple. Trachea midline. No tenderness, rigidity, carotid bruit, stridor , lymphadenopathy, or thyromegaly. Respiratory/Chest: Lungs CTAB. No shortness of breath, chest tenderness, respiratory distress, accessory muscle use. No crackles, rales, rhonchi, stridor , wheezing, dullness Cardiovascular: RRR. S1, S2. No JVD, murmur, bradycardia, tachycardia. Vascular Pulses: Dorsalis-Pedis (R): 2+, Dorsalis-Pedis (L): 2+ Gastrointestinal/Abdominal: Normal bowel sounds. Abdomen soft, non-distended. No tenderness or rebound tenderness. No organomegaly, pulsatile mass, guarding, hernia, hepatomegaly, splenomegaly. Lymphatic: No adenopathy, tenderness. Musculoskeletal/Extremities: Normal inspection. FROM of all extremities, normal capillary refill. Pelvis Stable. No CVA tenderness. No tenderness to extremities, pedal edema, swelling, erythema or deformity. Integumentary: Appropriate color, dry, warm. No cyanosis, erythema, jaundice or rash Neurologic: life care planner II-XII intact. Fully oriented, alert. Appropriate mood/affect. Motor strength 5/5. No appreciable EOM palsy, facial droop or sensory deficit. Able to perform rapid alternating movements correctly. Negative Kernig sign. Negative Brudzinski's Past History - Past Medical History Allergies/Adverse Reactions: Allergies Allergy/AdvReac Type Severity Reaction Status Date / Time No Known Allergies Allergy Verified 08/13/18 03:52 Home Medications: Ambulatory Orders Acetaminophen/Caffeine/Butalb [Fioricet -] 1 tablet PO Q4H PRN #30 tablet MDD 6 tablets 08/13/18 acetaZOLAMIDE [Diamox -] 500 mg PO BID #120 tablet 08/13/18 metFORMIN HCL [Glucophage -] 500 mg PO DAILY@1900 tablet 08/13/18 - Suicide/Smoking/Psychosocial Hx Smoking History: Never smoked Have you smoked in the past 12 months: No Information on smoking cessation initiated: No Hx Alcohol Use: No Drug/Substance Use Hx: No *Physical Exam - Vital Signs Last Vital Signs Temp Pulse Resp BP Pulse Ox 97.5 F L 66 18 131/79 100 08/24/18 18:35 08/24/18 18:35 08/24/18 18:35 08/24/18 18:35 08/24/18 18:35 Moderate Sedation - Procedure Monitoring Vital Signs: Procedure Monitoring Vital Signs Temperature 97.5 F L 08/24/18 18:35 Pulse Rate 66 08/24/18 18:35 Respiratory Rate 18 08/24/18 18:35 Blood Pressure 131/79 08/24/18 18:35 O2 Sat by Pulse Oximetry (%) 100 08/24/18 18:35 ED Treatment Course - LABORATORY CBC & Chemistry Diagram: 08/24/18 19:04 08/24/18 19:07 - ADDITIONAL ORDERS Additional order review: Laboratory Results 08/24/18 08/24/18 19:07 19:07 Sodium 140 Potassium 3.9 Chloride 106 Carbon Dioxide 22 Anion Gap 13 BUN 15 Creatinine 0.6 Creat Clearance w eGFR > 60 Random Glucose 138 H Calcium 9.5 Total Bilirubin 0.3 AST 21 ALT 46 Alkaline Phosphatase 132 H Total Protein 8.0 Albumin 4.4 Serum , Qual Negative 08/24/18 19:04 RBC 4.84 MCV 85.5 MCHC 33.0 RDW 13.4 MPV 9.4 Neutrophils % 90.0 H Lymphocytes % 6.6 L D Monocytes % 3.3 L Eosinophils % 0.0 Basophils % 0.1 Medical Decision Making - Medical Decision Making 08/24/18 21:56 A/P: 17-year-old girl with history of migraines and pseudotumor with headache and chest pain which started today Laboratory testing reveals an elevation in white count from 12-14,000 with neutrophils from 86.9-90%. Case has been discussed with Dr. Fischer who recommends attempts to treat headache with oral and IV medication. If successfully able to treat headache he recommends referral for outpatient large volume tap to help treat pseudotumor. If unable to treat headache he recommends LP. Toradol 30 mg Reglan 10 mg IV Normal saline 1 L Benadryl 50 mg IV Fioricet 08/25/18 02:53 Pain is not improved with Toradol, Reglan, Benadryl, Fioricet, morphine, IV fluids. I will obs patient for pain management and neurology consult in the morning 08/25/18 03:[address] Myles of the hospitalist service. Patient was put in observation under Dr. Lopez. *DC/Admit/Observation/Transfer Diagnosis at time of Disposition: Persistent headaches, Pseudotumor cerebri, PCOS (polycystic ovarian syndrome) - Discharge Dispostion Condition at time of disposition: Guarded Decision to Admit order: Yes - Referrals - Patient Instructions - Post Discharge Activity
[2018-08-25] MEDS ORDERED: morphine SULFATE 4 MG/ML VIAL IVPUSH ONE (00:36)
[2018-08-25] MEDS ORDERED: morphine SULFATE 4 MG/ML VIAL ONE (01:41)
[2018-08-25] MEDS ORDERED: ACETAMINOPHEN/CAFFEINE/BUTALBITAL 1 TAB PO PRN (04:00)
[2018-08-25] MEDS ORDERED: SODIUM CHLORIDE 1,000 ML IV SCH (04:00)
[2018-08-25] MEDS ORDERED: ACETAMINOPHEN 325 MG TABLET (FP) PO PRN (04:00)
--- NOTE | 2018-08-25 04:05 | HP ---
CHIEF COMPLAINT: migraines PCP: HISTORY OF PRESENT ILLNESS: 17 y.o female with PMH of migraines, PCOS< pseduotumor cerebri presented to the ED with worsening migraine symptoms- of ntoe she was here 2 weeks ago with same symptoms and was found to have pseudotumor cerebri for which she was prescribed acetazolamide for; today was the first day she had taken the medication as she did not know she needed to take it daily. she has had migraines for years and they are associated with chest disocmfort and photophobia. she denies any fevers or chills but did have an episode of vomiting ER course was notable for: (1) vital signs wnl (2)given reglan, morphine, fioricet, benadryl, fioricet (3) Recent Travel: none PAST MEDICAL HISTORY: see above PAST SURGICAL HISTORY: none Social History: Smoking:denies Alcohol:denies Drugs: denies Family History:HTN Allergies No Known Allergies Allergy (Verified 08/13/18 03:52) HOME MEDICATIONS: Home Medications Medication Instructions Recorded Acetaminophen/Caffeine/Butalb 1 tablet PO Q4H PRN #30 tablet MDD 08/13/18 [Fioricet -] 6 tablets acetaZOLAMIDE [Diamox -] 500 mg PO BID #120 tablet 08/13/18 metFORMIN HCL [Glucophage -] 500 mg PO DAILY@1900 tablet 08/13/18 REVIEW OF SYSTEMS CONSTITUTIONAL: Absent: fever, chills, diaphoresis, generalized weakness, malaise, loss of appetite, weight change HEENT: Absent: rhinorrhea, nasal congestion, throat pain, throat swelling, difficulty swallowing, mouth swelling, ear pain, eye pain, visual changes CARDIOVASCULAR: Absent: chest pain, syncope, palpitations, irregular heart rate, lightheadedness , peripheral edema RESPIRATORY: Absent: cough, shortness of breath, dyspnea with exertion, orthopnea, wheezing, stridor, hemoptysis GASTROINTESTINAL: Absent: abdominal pain, abdominal distension, nausea, vomiting, diarrhea, constipation, melena, hematochezia GENITOURINARY: Absent: dysuria, frequency, urgency, hesitancy, hematuria, flank pain, genital pain MUSCULOSKELETAL: Absent: myalgia, arthralgia, joint swelling, back pain, neck pain SKIN: Absent: rash, itching, pallor HEMATOLOGIC/IMMUNOLOGIC: Absent: easy bleeding, easy bruising, lymphadenopathy, frequent infections ENDOCRINE: Absent: unexplained weight gain, unexplained weight loss, heat intolerance, cold intolerance NEUROLOGIC: Present: headache, Absent: headache, focal weakness or paresthesias, dizziness , unsteady gait, seizure, mental status changes, bladder or bowel incontinence PSYCHIATRIC: Absent: anxiety, depression, suicidal or homicidal ideation, hallucinations. PHYSICAL EXAMINATION Vital Signs - 24 hr 08/24/18 18:35 Temperature 97.5 F L Pulse Rate 66 Respiratory 18 Rate Blood Pressure 131/79 O2 Sat by Pulse 100 Oximetry (%) GENERAL: Awake, alert, and fully oriented, in no acute distress.. EYES: EOMI; PEERLA, no scleral icterus NECK: no JVD no lymphadenopathy. LUNGS: CTA B/L; no rales, rhonchi or wheezing. HEART: Regular rate and rhythm, normal S1 and S2 without murmur, rub or gallop. ABDOMEN: Soft, nontender, not distended, normoactive bowel sounds, no guarding, no rebound, no masses. No hepatomegaly or splenomegaly. MUSCULOSKELETAL: Normal range of motion at all joints. No bony deformities or tenderness. No CVA tenderness. EXTREMITIES: warm; well-perfused, no clubbing/cyanosis or edema NEUROLOGICAL: Cranial nerves II-XII intact. Normal speech. Normal gait. 5/5 strenth b./l; sensation intact PSYCHIATRIC: Cooperative. Good eye contact. Appropriate mood and affect. SKIN: Warm, dry, normal turgor, no rashes or lesions noted, normal capillary refill. Laboratory Results - last 24 hr 08/24/18 08/24/18 08/24/18 19:04 19:07 19:07 WBC 14.3 H RBC 4.84 Hgb 13.7 Hct 41.4 MCV 85.5 MCH 28.3 MCHC 33.0 RDW 13.4 Plt Count 256 D MPV 9.4 Absolute Neuts (auto) 12.9 H Neutrophils % 90.0 H Lymphocytes % 6.6 L D Monocytes % 3.3 L Eosinophils % 0.0 Basophils % 0.1 Nucleated RBC % 0 Sodium 140 Potassium 3.9 Chloride 106 Carbon Dioxide 22 Anion Gap 13 BUN 15 Creatinine 0.6 Creat Clearance w eGFR > 60 Random Glucose 138 H Calcium 9.5 Total Bilirubin 0.3 AST 21 ALT 46 Alkaline Phosphatase 132 H Total Protein 8.0 Albumin 4.4 Serum , Qual Negative ASSESSMENT/PLAN: 17 y.o female with PMH of migraines, PCOS<, pseudotumor cerebri who presents with worsening migraine symptoms #Migraine Dr mejia consulted from ED will see her tomorrow; possible need for large volume tap -tylenol 650 TID -fioricet TID -c/w acetazolamide 500 BID -zofran PRN for nausea -NS@75mls -monitor migraine symptoms F/E/N NS @75mls/hr monitor electrolytes regular diet Problem List - Problem (1) Migraine Code(s): G43.909 - MIGRAINE, UNSP, NOT INTRACTABLE, WITHOUT STATUS MIGRAINOSUS Qualifiers: Migraine type: unspecified (2) PCOS (polycystic ovarian syndrome) Code(s): E28.2 - POLYCYSTIC OVARIAN SYNDROME (3) Pseudotumor cerebri Code(s): G93.2 - BENIGN INTRACRANIAL HYPERTENSION Visit type - Emergency Visit Emergency Visit: Yes ED Registration Date: 08/25/18 Care time: The patient presented to the Emergency Department on the above date and was hospitalized for further evaluation of their emergent condition. - New Patient This patient is new to me today: Yes Date on this admission: 08/25/18 - Critical Care Critical Care patient: No
--- NOTE | 2018-08-25 04:22 | PN ---
Teaching Attending Note Name of Resident: Ileana Quintanilla ATTENDING PHYSICIAN STATEMENT I saw and evaluated the patient. I reviewed the resident's note and discussed the case with the resident. I agree with the resident's findings and plan as documented. SUBJECTIVE: Seen and examined with resident; please refer to their note for further historical information. Briefly, this is a 17 y/o female who was just admitted/ DCd by our service on 08/13 for pseudotumor cerebri and associated ALVARES. She presents again today with intractable headache (global, associated with her typical CP that is characteristic of her migraines and is unchanged, similar to last presentation) that was not relieved with fiorcet, MSO4, APAP, benadryl in the ER. No red flag sx or neurological deficits. She will be admitted to the medicine service for neurological consult and LP tomorrow AM. The case was discussed with Neurology by ER staff; initial plans to treat ALVARES in ER and DC for OP LP failed. She has not been taking her Diamox at home aside from 1x dose today. 10 sys ROS done and negative aside from HPI PMH and PSH reviewed Social history reviewed; unchanged Medication list reviewed; reconciliation pending FH asked and noncontributory OBJECTIVE: VS, labs, imaging reviewed NAD, AAO, resting in chair. Conversational. NC AT EOMI PERRLA CN2-12 wnl, no fnd, 5/5 strength all 4 ext with normal sensorium. RRR s1/2 no mgr Lungs CTAB w/ sym exp Normal mood, appropirate affect Labs show leukocytosis to 14 with neutrophilia, unremarkable chemistry aside from glucose 138, Alk Phos is 132. Imaging from 08/13 reviewed; consults reviewed EKGs reviewed from old admit ASSESSMENT AND PLAN: Patient presents 12 days after being DC with ALVARES 2/2 benign IC HTN with her typical migraine. She unfortunately has not taken her diamox or followed up yet with neuro. Attempts to manage her sx in the ER failed and she will be admitted for LP as opposed to followup OP. 1) Intractable ALVARES -Likely combination of sx from ICH and migraines -Continue PRN Fiorcet, benadryl, APAP. MSO4 ONLY if the aforementioned failed and only up to the time of LP. -Neuro checks -Management as per neurology; LP tomorrow. Appreciate their presence on the case. 2) Benign ICH -Per above. Counseled and will continue her on her diamox. 3) Migraines -Per above; fiorcet, neuro consult 4) Leukocytosis -Also had one on last admit. No source identified. Checking UA, ESR, CRP. -Trend CBC; no fevers. No need for empiric abx coverage. 5) PCOS -Continue home MTF when DCd 6) Scoliosis -FU OP; no acute issues 7) Elevated Alk Phos -Only 132, will trend CMP and observe FENA -LR@60cc/hr overnight -PRN replete -Regular diet -As tolerated Full Code
[2018-08-25 06:11] LABS: HEMATOCRIT 36.5 % (32.4-45.2); HEMOGLOBIN 12.3 GM/dL (10.7-15.3); MCH 28.8 pg (25.7-33.7); MCHC 33.7 g/dl (32.0-36.0); MEAN CELL VOLUME 85.5 fl (80-96); MEAN PLT VOLUME 9.2 fl (7.5-11.1); PLATELET COUNT 239 K/MM3 (134-434); RBC 4.27 M/mm3 (3.60-5.2); RDW 13.3 % (11.6-15.6); WHITE BLOOD COUNT 9.2 K/mm3 (4.0-10.0)
[2018-08-25 06:24] LABS: INR 1.09 (0.83-1.09); PROTHROMBIN TIME (PATIENT) 12.9 SEC (9.7-13.0)
[2018-08-25 06:35] LABS: ALBUMIN 3.8 g/dl (3.4-5.0); ALK PHOS 110 U/L (45-117); ANION GAP 8 MMOL/L (8-16); BILIRUBIN,TOTAL 0.3 mg/dL (0.2-1); BLOOD UREA NITROGEN 9 mg/dL (7-18); CALCIUM 8.7 mg/dL (8.5-10.1); CHLORIDE 107 mmol/L (98-107); CO2 25 mmol/L (21-32); CREATININE 0.5 mg/dL (0.55-1.3); GLUCOSE,RANDOM 100 mg/dL (74-106); MAGNESIUM 1.9 mg/dL (1.8-2.4); PHOSPHOROUS 4.2 mg/dL (2.5-4.9); POTASSIUM 3.8 mmol/L (3.5-5.1); SGOT/AST 16 U/L (15-37); SGPT/ALT 35 U/L (13-61); SODIUM 140 mmol/L (136-145); TOT PROT 6.9 g/dl (6.4-8.2)
[2018-08-25 09:14] LABS: URINE APPEARANCE CLEAR; URINE BILIRUBIN NEGATIVE (<2.0 mg/dL); URINE COLOR YELLOW; URINE GLUCOSE (UA) NEGATIVE (NEGATIVE); URINE KETONE 1+ (NEGATIVE); URINE LEUK ESTERASE NEGATIVE (NEGATIVE); URINE NITRITE NEGATIVE (NEGATIVE); URINE PROTEIN 2+ (NEGATIVE); URINE UROBILINOGEN NEGATIVE mg/dL (0.2-1.0)
--- NOTE | 2018-08-25 09:31 | CONSULT ---
Consult - text type - Consultation Consultation Note: Neurology CHIEF COMPLAINT: headaches HISTORY OF PRESENT ILLNESS: 17 y.o female with PMH of migraines, PCOS, pseduotumor cerebri presented to the ED with worsening headache symptoms- of note she was here 2 weeks ago with same symptoms and was found to have pseudotumor cerebri for which she was prescribed acetazolamide for but was not taking the medication. The day of admission was the first day she had taken the medication as she did not know she needed to take it daily. she has had migraines for years and they are associated with chest disocmfort and photophobia. She denies any fevers or chills but did have an episode of vomiting. Discussed with patient that diamox would be needed for her to remain asymptomatic and she verbalized understanding. She can take fioricet as needed for migraine as well. No need for repeat LP at this time. If symptoms persist despite diamox then would consider large volume tap as outpatient with fluoro guidance. Recent Travel: none PAST MEDICAL HISTORY: see above PAST SURGICAL HISTORY: none Social History: Smoking:denies Alcohol:denies Drugs: denies Family History:HTN Allergies No Known Allergies Allergy (Verified 08/13/18 03:52) HOME MEDICATIONS: Home Medications Medication Instructions Recorded Acetaminophen/Caffeine/Butalb 1 tablet PO Q4H PRN #30 tablet MDD 08/13/18 [Fioricet -] 6 tablets acetaZOLAMIDE [Diamox -] 500 mg PO BID #120 tablet 08/13/18 metFORMIN HCL [Glucophage -] 500 mg PO DAILY@1900 tablet 08/13/18 REVIEW OF SYSTEMS CONSTITUTIONAL: Absent: fever, chills, diaphoresis, generalized weakness, malaise, loss of appetite, weight change HEENT: Absent: rhinorrhea, nasal congestion, throat pain, throat swelling, difficulty swallowing, mouth swelling, ear pain, eye pain, visual changes CARDIOVASCULAR: Absent: chest pain, syncope, palpitations, irregular heart rate, lightheadedness , peripheral edema RESPIRATORY: Absent: cough, shortness of breath, dyspnea with exertion, orthopnea, wheezing, stridor, hemoptysis GASTROINTESTINAL: Absent: abdominal pain, abdominal distension, nausea, vomiting, diarrhea, constipation, melena, hematochezia GENITOURINARY: Absent: dysuria, frequency, urgency, hesitancy, hematuria, flank pain, genital pain MUSCULOSKELETAL: Absent: myalgia, arthralgia, joint swelling, back pain, neck pain SKIN: Absent: rash, itching, pallor HEMATOLOGIC/IMMUNOLOGIC: Absent: easy bleeding, easy bruising, lymphadenopathy, frequent infections ENDOCRINE: Absent: unexplained weight gain, unexplained weight loss, heat intolerance, cold intolerance NEUROLOGIC: Present: headache, Absent: headache, focal weakness or paresthesias, dizziness , unsteady gait, seizure, mental status changes, bladder or bowel incontinence PSYCHIATRIC: Absent: anxiety, depression, suicidal or homicidal ideation, hallucinations. PHYSICAL EXAMINATION Vital Signs Period Temp Pulse Resp BP Sys/Ardon Pulse Ox Last 24 Hr 97.5 F-97.7 F 66-79 18-18 121-131/78-79 98-100 GENERAL: Awake, alert, and fully oriented, in no acute distress.. EYES: EOMI; PEERLA, no scleral icterus NECK: no JVD no lymphadenopathy. LUNGS: CTA B/L; no rales, rhonchi or wheezing. HEART: Regular rate and rhythm, normal S1 and S2 without murmur, rub or gallop. ABDOMEN: Soft, nontender, not distended, normoactive bowel sounds, no guarding, no rebound, no masses. No hepatomegaly or splenomegaly. MUSCULOSKELETAL: Normal range of motion at all joints. No bony deformities or tenderness. No CVA tenderness. EXTREMITIES: warm; well-perfused, no clubbing/cyanosis or edema NEUROLOGICAL: Cranial nerves II-XII intact. Normal speech. Normal gait. 5/5 strenth b./l; sensation intact PSYCHIATRIC: Cooperative. Good eye contact. Appropriate mood and affect. SKIN: Warm, dry, normal turgor, no rashes or lesions noted, normal capillary refill. Laboratory Results - last 24 hr 08/24/18 08/24/18 08/24/18 19:04 19:07 19:07 WBC 14.3 H RBC 4.84 Hgb 13.7 Hct 41.4 MCV 85.5 MCH 28.3 MCHC 33.0 RDW 13.4 Plt Count 256 D MPV 9.4 Absolute Neuts (auto) 12.9 H Neutrophils % 90.0 H Lymphocytes % 6.6 L D Monocytes % 3.3 L Eosinophils % 0.0 Basophils % 0.1 Nucleated RBC % 0 Sodium 140 Potassium 3.9 Chloride 106 Carbon Dioxide 22 Anion Gap 13 BUN 15 Creatinine 0.6 Creat Clearance w eGFR > 60 Random Glucose 138 H Calcium 9.5 Total Bilirubin 0.3 AST 21 ALT 46 Alkaline Phosphatase 132 H Total Protein 8.0 Albumin 4.4 Serum , Qual Negative ASSESSMENT/PLAN: 17 y.o female with PMH of migraines, PCOS, pseduotumor cerebri presented to the ED with worsening headache symptoms- of note she was here 2 weeks ago with same symptoms and was found to have pseudotumor cerebri for which she was prescribed acetazolamide for but was not taking the medication. The day of admission was the first day she had taken the medication as she did not know she needed to take it daily. she has had migraines for years and they are associated with chest disocmfort and photophobia. She denies any fevers or chills but did have an episode of vomiting. Discussed with patient that diamox would be needed for her to remain asymptomatic and she verbalized understanding. She can take fioricet as needed for migraine as well. No need for repeat LP at this time. If symptoms persist despite diamox then would consider large volume tap as outpatient with fluoro guidance. Plan for discharge, discussed with hospitalist , can give 5 days fioricet (ten tabs, no more than twice daily). Advised her to continue diamox 500 twice daily and follow up as outpatient. Patient in agreement.
[2018-08-25 10:59] LABS: EPI CELLS RARE /HPF (FEW); URINE BACTERIA RARE /hpf (NONE SEEN); URINE MUCUS FEW
--- NOTE | 2018-08-25 11:57 | DS ---
Physical Exam: SUBJECTIVE: Patient seen and examined by me at bedside Reports headache improved after medication and fluids States she was not sure of how to take her medication and thought it was only as needed. Explained to patient the importance of consistently taking her medication Patient tolerating PO Patient otherwise denies any fever, chills, nausea, vomiting, abdominal pain, chest pain, palpitations, shortness of breath, dysuria. OBJECTIVE: Vital Signs Period Temp Pulse Resp BP Sys/Ardon Pulse Ox Last 24 Hr 97.5 F-97.7 F 66-79 18-18 121-131/78-79 98-100 PHYSICAL EXAM GENERAL: The patient is awake, alert, and fully oriented, in no acute distress. HEAD: Normal with no signs of trauma. EYES: PERRL, extraocular movements intact, sclera anicteric, conjunctiva clear. ENT: Oropharynx clear without exudates, moist mucous membranes. NECK: Trachea midline, full range of motion, supple. LUNGS: Breath sounds equal, clear to auscultation bilaterally, no wheezes, no crackles, no accessory muscle use. HEART: Regular rate and rhythm, normal S1 and S2 without murmur, rub or gallop. ABDOMEN: Soft, obese nontender, nondistended, normoactive bowel sounds EXTREMITIES: No edema. NEUROLOGICAL: Cranial nerves II through XII grossly intact. Normal speech. Motor strength 5/5 bilaterally with sensory intact PSYCH: Normal mood, normal affect. SKIN: Warm, dry, normal turgor, no rashes or lesions noted. LABS Laboratory Results 08/25/18 05:18 08/25/18 06:00 08/25/18 06:00 Phosphorus 4.2 Magnesium 1.9 Total Bilirubin 0.3 AST 16 ALT 35 Alkaline Phosphatase 110 Urine Color Yellow 08/25/18 09:00 Urine Appearance Clear 08/25/18 09:00 Urine pH 6.0 (5.0-8.0) 08/25/18 09:00 Ur Specific [place] 1.029 (1.010-1.035) 08/25/18 09:00 Urine Protein 2+ (NEGATIVE) H 08/25/18 09:00 Urine Glucose (UA) Negative (NEGATIVE) 08/25/18 09:00 Urine Ketones 1+ (NEGATIVE) H 08/25/18 09:00 Urine Blood 3+ (NEGATIVE) H 08/25/18 09:00 Urine Nitrite Negative (NEGATIVE) 08/25/18 09:00 Urine Bilirubin Negative (<2.0 mg/dL) 08/25/18 09:00 Ur Leukocyte Esterase Negative (NEGATIVE) 08/25/18 09:00 Ur Epithelial Cells Rare /HPF (FEW) 08/25/18 09:00 Urine Bacteria Rare /hpf (NONE SEEN) 08/25/18 09:00 Urine Mucus Few 08/25/18 09:00 PRE-HOSPITAL COURSE: Patient is a 17 year old female with a PMHx of Pseudotumor Cerebri and PCOS who presented last night for intractable headache, predominately in the right side not relieved by Fioricet or her medication Diomax at home. Upon further questioning, patient reports she has not taken her Diomax since being prescribed two weeks ago due to confusion on when to take the medication. Patient thought Diomax was to be taken only as needed and not twice a day everyday. Patient was admitted for further evaluation by Neurology. HOSPITAL COURSE: Throughout hospitalization, patient was given, Benadryl, bolus IV fluids, reglan , toradal, tylenol, morphine, and a dose of Diomax. Patient was monitored overnight with improved symptoms today. She was seen by Neurologist, Dr. Fischer who recommended patient to continue her Diomax but twice a day, everyday as well as a 5 day course of Fioricet with outpatient follow up at his office. Patient verbalized understanding and medically stable for discharge Date of Admission:08/25/18 Date of Discharge: 08/25/18 Minutes to complete discharge: 45 Discharge Summary Reason For Visit: PERSISTENT HEADACHE,BENIGN INTRACRANIAL HYPERTEN Current Active Problems Migraine (Acute) PCOS (polycystic ovarian syndrome) (Acute) Persistent headaches (Acute) Pseudotumor cerebri (Acute) Condition: Stable - Instructions Diet, Activity, Other Instructions: RECOMMENDATIONS: -You were seen here for a worsening migraine likely due to not taking your medication. Once the medication was given to you, your symptoms improved. -Please take your medications as instructed below -If you have worsening symptoms such as severe headaches or vision changes, return to the emergency department -You may resume your regular diet at home. MEDICATIONS: -Please take Diomax 500mg twice a day every day, one in the morning and one at night. -You can also take Fioricet two times a day for 5 days only. A prescription will be sent to your pharmacy -You may resume your home medication Metformin. FOLLOW UP: -Please follow up with your primary care physician within a week -Please follow up with your Neurologist, Dr. Fischer in 1-2 weeks. His information will be in your discharge packet Disposition: HOME - Home Medications Comprehensive Discharge Medication List: Ambulatory Orders Acetaminophen/Caffeine/Butalb [Fioricet -] 1 tab PO BID PRN #10 tablet MDD 2 TABS 08/25/18 acetaZOLAMIDE [Diamox Sequels -] 500 mg PO BID 08/25/18 metFORMIN HCL [Metformin HCl] 850 mg PO DAILY 08/25/18 This patient is new to me today: Yes Date on this admission: 08/25/18 Emergency Visit: Yes ED Registration Date: 08/25/18 Care time: The patient presented to the Emergency Department on the above date and was hospitalized for further evaluation of their emergent condition. Critical Care patient: No - Discharge Referral Referred to [facility] Med P.C.: No
--- NOTE | 2018-08-25 12:21 | EKG ---
Test Reason : Blood Pressure : / mmHG Vent. Rate : 071 BPM Atrial Rate : 071 BPM P-R Int : 132 ms QRS Dur : 094 ms QT Int : 396 ms P-R-T Axes : 023 -04 011 degrees QTc Int : 430 ms NORMAL SINUS RHYTHM VOLTAGE CRITERIA FOR LEFT VENTRICULAR HYPERTROPHY NONSPECIFIC T WAVE ABNORMALITY ABNORMAL ECG WHEN COMPARED WITH ECG OF 13-AUG-2018 02:45, NO SIGNIFICANT CHANGE WAS FOUND Confirmed by ANTON HURD, VIKTOR ([id number]) on 08/25/2018 12:21:24 PM Referred By: Confirmed By:VIKTOR WALTON MD
[2018-08-25 12:49] VITALS: BP 127/65; PULSE 72; TEMP 98.2
--- NOTE | 2018-08-25 13:18 | PN ---
Teaching Attending Note Name of Resident: Rosario Hernandez ATTENDING PHYSICIAN STATEMENT I saw and evaluated the patient. I reviewed the resident's note and discussed the case with the resident. I agree with the resident's findings and plan as documented. SUBJECTIVE: OBJECTIVE: ASSESSMENT AND PLAN:
== END 2018-08-25 12:25 | disposition home or self-care (01) ==
LOC: JER 18:25 → JERBED 08-25 03:20
PROVIDERS: ADMIT Internal Medicine; ATTEND Internal Medicine
PROC: 3E0333Z Introduction of Anti-inflammatory into Peripheral Vein, Percutaneous Approach (ICD-10-PCS; principal; 2018-08-25)
PROC: 3E033NZ Introduction of Analgesics, Hypnotics, Sedatives into Peripheral Vein, Percutaneous Approach (ICD-10-PCS; 2018-08-25)
PROC: 3E0337Z Introduction of Electrolytic and Water Balance Substance into Peripheral Vein, Percutaneous Approach (ICD-10-PCS; 2018-08-25)
PROC: 3E033GC Introduction of Other Therapeutic Substance into Peripheral Vein, Percutaneous Approach (ICD-10-PCS; 2018-08-25)
DX: G44.52 New daily persistent headache (NDPH) (principal); G93.2 Benign intracranial hypertension; G43.909 Migraine, unspecified, not intractable, without status migrainosus; E28.2 Polycystic ovarian syndrome; D72.829 Elevated white blood cell count, unspecified; M41.9 Scoliosis, unspecified; R74.8 Abnormal levels of other serum enzymes
CPT/HCPCS: 36415; 71046-TC-FY; 80053; 81003; 81015; 83735; 84100; 84703; 85025; 85027; 85610; 85651; 93005; 93010; 99283-25; G0378; J7030

== ENCOUNTER 2018-08-27 03:17 | Observation (INO) | payer OTHER ==
[2018-08-27] MEDS ORDERED: KETOROLAC TROMETHAMINE 30 MG/1 ML VIAL IVPUSH ONE (04:39)
[2018-08-27] MEDS ORDERED: METOCLOPRAMIDE HCL INJECTION 10 MG/2 ML VIAL IVPUSH ONE (04:39)
[2018-08-27] MEDS ORDERED: morphine CARPU-JECT 4 MG/1 ML DISP.SYRIN IVPUSH ONE (04:39)
[2018-08-27] MEDS ORDERED: SODIUM CHLORIDE 1,000 ML IV STA (04:39)
--- NOTE | 2018-08-27 04:40 | PDOC ---
History of Present Illness <Shasta Hutson - Last Filed: 08/27/18 06:12> - General History Source: Patient, Old Records Exam Limitations: No Limitations - History of Present Illness Initial Comments: 08/27/18 04:37 HISTORY OF PRESENT ILLNESS: 17-year-old female with past medical history of PCOS , migraines, pseudotumor cerebri presents emergency Department for headache and chest pain throughout the day today. Patient states this is her usual migraine pattern where she has diffuse chest pain, with an escalating headache. Patient currently rates her pain 8/10 and reports 1 episode of nonbilious nonbloody vomiting. Patient was seen and evaluated here when she was diagnosed with a pseudotumor. Patient reports compliance with Diamox and Fioricet as outpatient since recent discharge. Patient denies any blurry vision, dizziness No recent travel or sick contacts. PAST MEDICAL HISTORY: PCOS, Migraines, pseudotumor SURGICAL HISTORY: Denies ALLERGIES: No known drug allergies REVIEW OF SYSTEMS General/Constitutional: Denies fever or chills. Denies weakness, weight change. HEENT: Denies change in vision. Denies ear pain or discharge. Denies sore throat. Cardiovascular: Diffuse chest pain. Denies shortness of breath. Respiratory: Denies cough, wheezing, or hemoptysis. Gastrointestinal: Denies nausea, vomiting, diarrhea or constipation. Denies rectal bleeding. Genitourinary: Denies dysuria, frequency, or change in urination. Musculoskeletal: Denies joint or muscle swelling or pain. Denies neck or back pain. Skin and breasts: Denies rash or easy bruising. Neurologic: Global headache. Denies vertigo, loss of consciousness, or loss of sensation. Psychiatric: Denies depression or anxiety. Endocrine: Denies increased thirst. Denies abnormal weight change. Hematologic/Lymphatic: Denies anemia, easy bleeding, or history of blood clots. Allergic/Immunologic: Denies hives or skin allergy. Denies latex allergy. PHYSICAL EXAM General Appearance: Well-appearing, appropriately dressed. No apparent distress , no intoxication. HEENT: EOMI, PERRLA, normal ENT inspection, normal voice, TMs normal, pharynx normal. No conjunctival pallor. (+)photophobia. No scleral icterus. Neck: Supple. Trachea midline. No tenderness, rigidity, carotid bruit, stridor , lymphadenopathy, or thyromegaly. Respiratory/Chest: Lungs CTAB. No shortness of breath, chest tenderness, respiratory distress, accessory muscle use. No crackles, rales, rhonchi, stridor , wheezing, dullness Cardiovascular: RRR. S1, S2. No JVD, murmur, bradycardia, tachycardia. Vascular Pulses: Dorsalis-Pedis (R): 2+, Dorsalis-Pedis (L): 2+ Gastrointestinal/Abdominal: Normal bowel sounds. Abdomen soft, non-distended. No tenderness or rebound tenderness. No organomegaly, pulsatile mass, guarding, hernia, hepatomegaly, splenomegaly. Lymphatic: No adenopathy, tenderness. Musculoskeletal/Extremities: Normal inspection. FROM of all extremities, normal capillary refill. Pelvis Stable. No CVA tenderness. No tenderness to extremities, pedal edema, swelling, erythema or deformity. Integumentary: Appropriate color, dry, warm. No cyanosis, erythema, jaundice or rash Neurologic: bath tester II-XII intact. Fully oriented, alert. Appropriate mood/affect. Motor strength 5/5. No appreciable EOM palsy, facial droop or sensory deficit. Able to perform rapid alternating movements correctly. Negative Kernig sign. Negative Brudzinski's <Riccardo David - Last Filed: 08/27/18 19:31> - General Chief Complaint: Chest Pain Stated Complaint: CHEST PAIN/MIGRAINE Time Seen by Provider: 08/27/18 04:18 Past History <Shasta Hutson - Last Filed: 08/27/18 06:12> - Past Medical History COPD: No - Immunization History Immunization Up to Date: Yes - Suicide/Smoking/Psychosocial Hx Smoking History: Never smoked Have you smoked in the past 12 months: No Information on smoking cessation initiated: No Hx Alcohol Use: No Drug/Substance Use Hx: No <Riccardo David - Last Filed: 08/27/18 19:31> - Past Medical History Allergies/Adverse Reactions: Allergies Allergy/AdvReac Type Severity Reaction Status Date / Time No Known Allergies Allergy Verified 08/27/18 03:22 Home Medications: Ambulatory Orders Acetaminophen/Caffeine/Butalb [Fioricet -] 1 tab PO BID PRN #10 tablet MDD 2 TABS 08/25/18 Acetaminophen/Caffeine/Butalb [Fioricet -] 1 tablet PO BID PRN #10 tablet MDD 2 tabs 08/25/18 acetaZOLAMIDE [Diamox Sequels -] 500 mg PO BID 08/25/18 metFORMIN HCL [Metformin HCl] 850 mg PO DAILY 08/25/18 *Physical Exam - Vital Signs Last Vital Signs Temp Pulse Resp BP Pulse Ox 97.6 F 71 18 104/63 100 08/27/18 03:22 08/27/18 03:58 08/27/18 03:22 08/27/18 03:22 08/27/18 03:58 <Shasta Hutson - Last Filed: 08/27/18 06:12> - Vital Signs Last Vital Signs Temp Pulse Resp BP Pulse Ox 97.6 F 62 18 104/63 98 08/27/18 03:22 08/27/18 03:22 08/27/18 03:22 08/27/18 03:22 08/27/18 03:22 <Riccardo David - Last Filed: 08/27/18 19:31> Moderate Sedation - Procedure Monitoring Vital Signs: Procedure Monitoring Vital Signs Temperature 97.6 F 08/27/18 03:22 Pulse Rate 71 08/27/18 03:58 Respiratory Rate 18 08/27/18 03:22 Blood Pressure 104/63 08/27/18 03:22 O2 Sat by Pulse Oximetry (%) 100 08/27/18 03:58 <Shasta Hutson - Last Filed: 08/27/18 06:12> - Procedure Monitoring Vital Signs: Procedure Monitoring Vital Signs Temperature 97.6 F 08/27/18 03:22 Pulse Rate 62 08/27/18 03:22 Respiratory Rate 18 08/27/18 03:22 Blood Pressure 104/63 08/27/18 03:22 O2 Sat by Pulse Oximetry (%) 98 08/27/18 03:22 <Riccardo David - Last Filed: 08/27/18 19:31> Heart Score/ECG Review - ECG Intrepretation Rhythm: Regular Rhythm - [place]: Normal - P and CT Prominent R with upright T in V1 (true posterior RI): No Delta Wave(s) Present: No WPW: No - QRS Poor R Wave Progression: No Q Wave Present: No - ECG Impressions Normal ECG: Yes Non-specific ST Elevation: No Ischemic Changes: No Bradycardia: No <Shasta Hutson - Last Filed: 08/27/18 06:12> ED Treatment Course - LABORATORY CBC & Chemistry Diagram: 08/27/18 05:17 08/27/18 05:17 - ADDITIONAL ORDERS Additional order review: Laboratory Results 08/27/18 08/27/18 05:17 05:17 Sodium 138 Potassium 3.9 Chloride 109 H Carbon Dioxide 22 Anion Gap 6 L BUN 12 Creatinine 0.6 Creat Clearance w eGFR > 60 Random Glucose 116 H Calcium 8.3 L Total Bilirubin 0.2 AST 21 ALT 42 Alkaline Phosphatase 117 Total Protein 7.4 Albumin 4.0 Urine Color Yellow Urine Appearance Cloudy Urine pH 9.0 H D Ur Specific [place] 1.016 Urine Protein Negative Urine Glucose (UA) Negative Urine Ketones Negative Urine Blood 3+ H Urine Nitrite Negative Urine Bilirubin Negative Urine Urobilinogen Negative Ur Leukocyte Esterase Negative Urine WBC (Auto) None Urine RBC (Auto) 577 Ur Epithelial Cells Rare Amorphous Phosphates 3+ - Medications Given in the ED: ED Medications Discontinued Medications Generic Name Dose Route Start Last Admin Trade Name Desirae PRN Reason Stop Dose Admin Acetaminophen/Butalbital/Caffeine 1 tablet 08/27/18 04:56 08/27/18 05:11 Fioricet - PO 08/27/18 04:57 1 tablet ONCE ONE Administration Diphenhydramine HCl 25 mg 08/27/18 04:39 08/27/18 04:50 Benadryl Injection - IVPUSH 08/27/18 04:40 25 mg ONCE ONE Administration Sodium Chloride 1,000 mls @ 1,000 mls/hr 08/27/18 04:39 08/27/18 04:51 Normal Saline - IV 08/27/18 05:38 1,000 mls/hr ASDIR STA Administration Ketorolac Tromethamine 30 mg 08/27/18 04:39 08/27/18 04:51 Toradol Injection - IVPUSH 08/27/18 04:40 30 mg ONCE ONE Administration Metoclopramide HCl 10 mg 08/27/18 04:39 08/27/18 04:51 Reglan Injection - IVPUSH 08/27/18 04:40 10 mg ONCE ONE Administration Morphine Sulfate 4 mg 08/27/18 04:39 08/27/18 04:50 Morphine Injection - IVPUSH 08/27/18 04:40 4 mg ONCE ONE Administration <Shasta Hutson - Last Filed: 08/27/18 06:12> - LABORATORY CBC & Chemistry Diagram: 08/27/18 05:17 08/27/18 05:17 <Riccardo David - Last Filed: 08/27/18 19:31> Medical Decision Making - Medical Decision Making 08/27/18 04:42 A/P: 17-year-old female history of pseudotumor and migraines who presents with her usual migraine headache which is associated with chest pain Labs Urine Reglan 10 mg IV Benadryl 25 mg IV Toradol 30 mg IV Morphine 4 mg IV Normal saline 1 L bolus Reassess 08/27/18 05:46 Patient with continued symptoms and pain 03/11 after receiving medications. I will admit patient to hospitalist service for continued evaluation. 08/27/18 06:[address] Hayden of the hospitalist service. Patient is currently sleeping for evaluation. Dr. Hayden agrees with ED obs and if pain does not improve after some rest to be converted to observation. 08/27/18 07:07 Pt signed out to [employer] Funes. <Riccardo David - Last Filed: 08/27/18 19:31> *DC/Admit/Observation/Transfer <Shasta Hutson - Last Filed: 08/27/18 06:12> - Discharge Dispostion Decision to Admit order: Yes <Riccardo David - Last Filed: 08/27/18 19:31> Diagnosis at time of Disposition: Persistent headaches, Pseudotumor cerebri Migraine Qualifiers: Migraine type: with aura Status migrainosus presence: with status migrainosus Intractability: intractable Qualified Code(s): G43.111 - Migraine with aura, intractable, with status migrainosus - Discharge Dispostion Condition at time of disposition: Stable
[2018-08-27] MEDS ORDERED: ACETAMINOPHEN/CAFFEINE/BUTALBITAL 1 TAB PO ONE (04:56)
[2018-08-27] MEDS ORDERED: METOCLOPRAMIDE HCL INJECTION 10 MG/2 ML VIAL ONE (04:58)
[2018-08-27] MEDS ORDERED: morphine SULFATE 4 MG/ML VIAL ONE (04:59)
[2018-08-27] MEDS ORDERED: KETOROLAC TROMETHAMINE 30 MG/1 ML VIAL ONE (04:59)
[2018-08-27] MEDS ORDERED: ACETAMINOPHEN/CAFFEINE/BUTALBITAL 1 TAB ONE (05:09)
[2018-08-27 05:31] LABS: URINE APPEARANCE CLOUDY; URINE BILIRUBIN NEGATIVE (<2.0 mg/dL); URINE COLOR YELLOW; URINE GLUCOSE (UA) NEGATIVE (NEGATIVE); URINE KETONE NEGATIVE (NEGATIVE); URINE LEUK ESTERASE NEGATIVE (NEGATIVE); URINE NITRITE NEGATIVE (NEGATIVE); URINE PROTEIN NEGATIVE (NEGATIVE); URINE UROBILINOGEN NEGATIVE mg/dL (0.2-1.0)
[2018-08-27 05:45] LABS: AMORP PHOS 3+ /hpf (NONE SEEN); EPI CELLS RARE /HPF (FEW)
[2018-08-27 05:51] LABS: ALK PHOS 117 U/L (45-117); ANION GAP 6 MMOL/L (8-16); BASO % 0.2 % (0-2.0); BILIRUBIN,TOTAL 0.2 mg/dL (0.2-1); BLOOD UREA NITROGEN 12 mg/dL (7-18); CALCIUM 8.3 mg/dL (8.5-10.1); CHLORIDE 109 mmol/L (98-107); CO2 22 mmol/L (21-32); CREATININE 0.6 mg/dL (0.55-1.3); EOS % 0.1 % (0-4.5); GLUCOSE,RANDOM 116 mg/dL (74-106); HEMATOCRIT 37.3 % (32.4-45.2); HEMOGLOBIN 12.7 GM/dL (10.7-15.3); LYMPH % 12.2 % (8-40); MCH 29.2 pg (25.7-33.7); MCHC 34.1 g/dl (32.0-36.0); MEAN CELL VOLUME 85.8 fl (80-96); MONO % 5.3 % (3.8-10.2); NEUT % 82.2 % (42.8-82.8); PLATELET COUNT 224 K/MM3 (134-434); POTASSIUM 3.9 mmol/L (3.5-5.1); RBC 4.35 M/mm3 (3.60-5.2); RDW 13.1 % (11.6-15.6); SGOT/AST 21 U/L (15-37); SGPT/ALT 42 U/L (13-61); SODIUM 138 mmol/L (136-145); TOT PROT 7.4 g/dl (6.4-8.2); WHITE BLOOD COUNT 12.9 K/mm3 (4.0-10.0)
--- NOTE | 2018-08-27 08:04 | PDOC ---
*Physical Exam - Vital Signs Last Vital Signs Temp Pulse Resp BP Pulse Ox 97.6 F 67 18 110/46 L 97 08/27/18 03:22 08/27/18 07:47 08/27/18 07:47 08/27/18 07:47 08/27/18 07:47 - Physical Exam Comments: 08/27/18 10:11 I assumed care of [id number] female with past medical history of PCOS, migraines, pseudotumor cerebri presents emergency Department for headache and chest pain throughout the day today. Patient states this is her usual migraine pattern where she has diffuse chest pain, with an escalating headache.Patient given Furacin, Benadryl, Toradol, Reglan, morphine and IV fluid prior to being signout and patient reported to have a 7 out of 10 headache after 3 hours of meds. Patient report no chest pains now. EKG done at presentation was normal. Spoke to Dr. Fischer's office who was the neurologist who saw patient on last admission 2 days ago and spoke to the covering physician Dr. Sparks reported he would come by to see the patient and discussed the follow-up plan. 08/27/18 10:18 General Appearance: Yes: Nourished, Appropriately Dressed. No: Apparent Distress HEENT: positive: INEZ, Normal ENT Inspection, Normal Voice, Pharynx Normal. negative: Photophobia Neck: positive: Supple Respiratory/Chest: positive: Lungs Clear. negative: Respiratory Distress, Accessory Muscle Use Cardiovascular: positive: Regular Rhythm, Regular Rate Gastrointestinal/Abdominal: positive: Flat, Soft. negative: Tender Musculoskeletal: positive: Normal Inspection Extremity: positive: Normal Inspection Neurologic: positive: Fully Oriented, Alert, Normal Response ED Treatment Course - LABORATORY CBC & Chemistry Diagram: 08/27/18 05:17 08/27/18 05:17 - ADDITIONAL ORDERS Additional order review: Laboratory Results 08/27/18 08/27/18 05:17 05:17 Sodium 138 Potassium 3.9 Chloride 109 H Carbon Dioxide 22 Anion Gap 6 L BUN 12 Creatinine 0.6 Creat Clearance w eGFR > 60 Random Glucose 116 H Calcium 8.3 L Total Bilirubin 0.2 AST 21 ALT 42 Alkaline Phosphatase 117 Total Protein 7.4 Albumin 4.0 Urine Color Yellow Urine Appearance Cloudy Urine pH 9.0 H D Ur Specific [place] 1.016 Urine Protein Negative Urine Glucose (UA) Negative Urine Ketones Negative Urine Blood 3+ H Urine Nitrite Negative Urine Bilirubin Negative Urine Urobilinogen Negative Ur Leukocyte Esterase Negative Urine WBC (Auto) None Urine RBC (Auto) 577 Ur Epithelial Cells Rare Amorphous Phosphates 3+ 08/27/18 05:17 RBC 4.35 MCV 85.8 MCHC 34.1 RDW 13.1 MPV 9.0 Neutrophils % 82.2 Lymphocytes % 12.2 D Monocytes % 5.3 Eosinophils % 0.1 D Basophils % 0.2 - Medications Given in the ED: ED Medications Discontinued Medications Generic Name Dose Route Start Last Admin Trade Name Freq PRN Reason Stop Dose Admin Acetaminophen/Butalbital/Caffeine 1 tablet 08/27/18 04:56 08/27/18 05:11 Fioricet - PO 08/27/18 04:57 1 tablet ONCE ONE Administration Diphenhydramine HCl 25 mg 08/27/18 04:39 08/27/18 04:50 Benadryl Injection - IVPUSH 08/27/18 04:40 25 mg ONCE ONE Administration Sodium Chloride 1,000 mls @ 1,000 mls/hr 08/27/18 04:39 08/27/18 04:51 Normal Saline - IV 08/27/18 05:38 1,000 mls/hr ASDIR STA Administration Ketorolac Tromethamine 30 mg 08/27/18 04:39 08/27/18 04:51 Toradol Injection - IVPUSH 08/27/18 04:40 30 mg ONCE ONE Administration Metoclopramide HCl 10 mg 08/27/18 04:39 08/27/18 04:51 Reglan Injection - IVPUSH 08/27/18 04:40 10 mg ONCE ONE Administration Morphine Sulfate 4 mg 08/27/18 04:39 08/27/18 04:50 Morphine Injection - IVPUSH 08/27/18 04:40 4 mg ONCE ONE Administration Medical Decision Making - Medical Decision Making 08/27/18 10:15 I assumed care of [id number] female with past medical history of PCOS, migraines, pseudotumor cerebri presents emergency Department for headache and chest pain throughout the day today. Patient states this is her usual migraine pattern where she has diffuse chest pain, with an escalating headache.Patient given Fioricet, Benadryl, Toradol, Reglan, morphine and IV fluid prior to being signout and patient reported to have a 7 out of [address] Fischer's office who was the neurologist who saw patient on last admission 2 days ago and spoke to the covering physician Dr. Sparks reported he would come by to see the patient and discussed the follow-up plan. 08/27/18 12:[address] Sparks recommended patient admitted for IV treatment with Depacon. Medicine team paged for patient admission. Medicine indicates patient to be admitted under Dr. Ita Stark 08/27/18 12:43 *DC/Admit/Observation/Transfer Diagnosis at time of Disposition: Persistent headaches, Pseudotumor cerebri Migraine Qualifiers: Migraine type: with aura Status migrainosus presence: with status migrainosus Intractability: intractable Qualified Code(s): G43.111 - Migraine with aura, intractable, with status migrainosus - Discharge Dispostion Condition at time of disposition: Stable Decision to Admit order: Yes Decision to Admit order Date/Time: 08/27/18 12:25 Admit for intractable migraines with IV treatment as per neurologist Dr. Sparks - Referrals - Patient Instructions - Post Discharge Activity
--- NOTE | 2018-08-27 11:15 | CON.NEURO ---
Consult Consult Specialty:: NEUROLOGY-ALBA HURD for DR. GOMES - History of Present Illness Chief Complaint: Headache. History of Present Illness: ISTORY OF PRESENT ILLNESS: 17-year-old female with past medical history of PCOS , migraines, pseudotumor cerebri recently dx. OP on 08/13/18-39, placed on Diamox.presents emergency Department for headache and chest pain throughout the day today. Reports ALVARES is persistent since last night, bitemporal, 10/10 intensity with photophobia/n/v, denies blurred vision, has her typical chest pain preceeding onset of ALVARES but last night had perioral tingling that she attributes to fioricet(this has resolved). Denies visual symptoms/neck pain/ tinnitus(no sx.of benign intracranial HTN). Patient states this is her usual migraine pattern where she has diffuse chest pain, with an escalating headache. Patient currently rates her pain 8/10 and reports 1 episode of nonbilious nonbloody vomiting. Patient was seen and evaluated here when she was diagnosed with a pseudotumor. Patient reports compliance with Diamox and Fioricet as outpatient since recent discharge. Patient denies any blurry vision, dizziness. This is her 3rd visit to ER in last few days. - Past Medical History OB GYN: Yes: Migraine Musculoskeletal: Yes: Other (scoliosis) - Alcohol/Substance Use Hx Alcohol Use: No History of Substance Use: reports: None - Smoking History Smoking history: Never smoked Have you smoked in the past 12 months: No - Social History ADL: Independent History of Recent Travel: No Home Medications - Allergies Allergies/Adverse Reactions: Allergies Allergy/AdvReac Type Severity Reaction Status Date / Time No Known Allergies Allergy Verified 08/27/18 03:22 - Home Medications Home Medications: Ambulatory Orders Acetaminophen/Caffeine/Butalb [Fioricet -] 1 tab PO BID PRN #10 tablet MDD 2 TABS 08/25/18 Acetaminophen/Caffeine/Butalb [Fioricet -] 1 tablet PO BID PRN #10 tablet MDD 2 tabs 08/25/18 acetaZOLAMIDE [Diamox Sequels -] 500 mg PO BID 08/25/18 metFORMIN HCL [Metformin HCl] 850 mg PO DAILY 08/25/18 Family Disease History - Family Disease History Family Disease History: Other: Father (HTN), Mother (HTN) Physical Exam-Neuro Vital Signs: Vital Signs Temperature 97.6 F 08/27/18 03:22 Pulse Rate 67 08/27/18 07:47 Respiratory Rate 18 08/27/18 07:47 Blood Pressure 110/46 L 08/27/18 07:47 O2 Sat by Pulse Oximetry (%) 97 08/27/18 07:47 Labs: CBC, BMP 08/27/18 05:17 08/27/18 05:17 - Neuro Exam Cranial Nerves II-XII Intact: Yes (No evid. of papilloedema.) Assessment/Plan Pt. with [id number] dx. SHREYAS, chronic migraine, now with status migrainosus. Plan: Cont Diamox 500mg bid Place on Depacon 500mg ivss qdhrs to break status migrainosus. Reglan/Benadryl 05/26 q8hrs prn d/c fioricet. Will discuss prophylactic rx. for migraine with Dr. Gomes on Wednesday.
--- NOTE | 2018-08-27 12:52 | EKG ---
Test Reason : Blood Pressure : / mmHG Vent. Rate : 064 BPM Atrial Rate : 064 BPM P-R Int : 152 ms QRS Dur : 096 ms QT Int : 422 ms P-R-T Axes : 035 008 022 degrees QTc Int : 435 ms NORMAL SINUS RHYTHM MODERATE VOLTAGE CRITERIA FOR LVH, MAY BE NORMAL VARIANT INCOMPLETE RBBB WHEN COMPARED WITH ECG OF 25-AUG-2018 07:39, NO SIGNIFICANT CHANGE WAS FOUND Confirmed by LIVIA HOUSE MD ([id number]) on 08/27/2018 12:52:22 PM Referred By: Confirmed By:LIVIA HOUSE MD
[2018-08-27] MEDS ORDERED: VALPROATE SODIUM 500 MG/5 ML VIAL ONE (15:11)
[2018-08-27] MEDS ORDERED: METOCLOPRAMIDE HCL 10 MG TABLET (FP) PO PRN ×2 (15:19→18:26)
[2018-08-27] MEDS: VALPROATE SODIUM 500 MG/5 ML VIAL IVPB SCH ×2 (15:35→22:52)
[2018-08-27 16:29] VITALS: BMI 33.4
--- NOTE | 2018-08-27 16:34 | PN ---
Physical Exam: SUBJECTIVE: Patient seen and examined OBJECTIVE: Vital Signs Period Temp Pulse Resp BP Sys/Ardon Pulse Ox Last 24 Hr 97.6 F-98.3 F 60-78 18-20 104-117/46-69 97-100 GENERAL: The patient is awake, alert, and fully oriented, in no acute distress. HEAD: Normal with no signs of trauma. EYES: PERRL, extraocular movements intact, sclera anicteric, conjunctiva clear. No ptosis. ENT: Ears normal, nares patent, oropharynx clear without exudates, moist mucous membranes. NECK: Trachea midline, full range of motion, supple. LUNGS: Breath sounds equal, clear to auscultation bilaterally, no wheezes, no crackles, no accessory muscle use. HEART: Regular rate and rhythm, S1, S2 without murmur, rub or gallop. ABDOMEN: Soft, nontender, nondistended, normoactive bowel sounds, no guarding, no rebound, no hepatosplenomegaly, no masses. EXTREMITIES: 2+ pulses, warm, well-perfused, no edema. NEUROLOGICAL: Cranial nerves II through XII grossly intact. Normal speech, gait not observed. PSYCH: Normal mood, normal affect. SKIN: Warm, dry, normal turgor, no rashes or lesions noted Laboratory Results - last 24 hr 08/27/18 08/27/18 08/27/18 05:17 05:17 05:17 WBC 12.9 H RBC 4.35 Hgb 12.7 Hct 37.3 MCV 85.8 MCH 29.2 MCHC 34.1 RDW 13.1 Plt Count 224 MPV 9.0 Absolute Neuts (auto) 10.6 H Neutrophils % 82.2 Lymphocytes % 12.2 D Monocytes % 5.3 Eosinophils % 0.1 D Basophils % 0.2 Nucleated RBC % 0 Sodium 138 Potassium 3.9 Chloride 109 H Carbon Dioxide 22 Anion Gap 6 L BUN 12 Creatinine 0.6 Creat Clearance w eGFR > 60 Random Glucose 116 H Calcium 8.3 L Total Bilirubin 0.2 AST 21 ALT 42 Alkaline Phosphatase 117 Total Protein 7.4 Albumin 4.0 Urine Color Yellow Urine Appearance Cloudy Urine pH 9.0 H D Ur Specific [place] 1.016 Urine Protein Negative Urine Glucose (UA) Negative Urine Ketones Negative Urine Blood 3+ H Urine Nitrite Negative Urine Bilirubin Negative Urine Urobilinogen Negative Ur Leukocyte Esterase Negative Urine WBC (Auto) None Urine RBC (Auto) 577 Ur Epithelial Cells Rare Amorphous Phosphates 3+ Urine HCG, Qual 08/27/18 06:55 WBC RBC Hgb Hct MCV MCH MCHC RDW Plt Count MPV Absolute Neuts (auto) Neutrophils % Lymphocytes % Monocytes % Eosinophils % Basophils % Nucleated RBC % Sodium Potassium Chloride Carbon Dioxide Anion Gap BUN Creatinine Creat Clearance w eGFR Random Glucose Calcium Total Bilirubin AST ALT Alkaline Phosphatase Total Protein Albumin Urine Color Urine Appearance Urine pH Ur Specific [place] Urine Protein Urine Glucose (UA) Urine Ketones Urine Blood Urine Nitrite Urine Bilirubin Urine Urobilinogen Ur Leukocyte Esterase Urine WBC (Auto) Urine RBC (Auto) Ur Epithelial Cells Amorphous Phosphates Urine HCG, Qual Negative Active Medications Generic Name Dose Route Start Last Admin Trade Name Freq PRN Reason Stop Dose Admin Acetazolamide 500 mg 08/27/18 22:00 Diamox - PO BID JOAN Diphenhydramine HCl 25 mg 08/27/18 15:19 Benadryl - PO Q6H PRN migranes Metformin HCl 850 mg 08/28/18 10:00 Glucophage - PO DAILY@0700 JOAN Metoclopramide HCl 10 mg 08/27/18 15:19 Reglan - PO TID PRN migranes Valproate Sodium 500 mg 08/27/18 14:00 08/27/18 15:35 Depacon Injection - IVPB 500 mg TID [facility] Administration ASSESSMENT/PLAN:
--- NOTE | 2018-08-27 16:40 | HP ---
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 Reproductive: Yes: Polycystic Ovary Syndrome ...LMP: 08/24/18 ...: No Musculoskeletal: Yes: Other (scoliosis) - Past Surgical History Past Surgical History: Yes: None - Smoking History Smoking history: Never smoked Have you smoked in the past 12 months: No - Alcohol/Substance Use Hx Alcohol Use: No History of Substance Use: reports: None - Social History Usual Living Arrangement: Yes: With Parent History of Recent Travel: No Home Medications - Allergies Allergies/Adverse Reactions: Allergies Allergy/AdvReac Type Severity Reaction Status Date / Time No Known Allergies Allergy Verified 08/27/18 03:22 - Home Medications Home Medications: Ambulatory Orders Acetaminophen/Caffeine/Butalb [Fioricet -] 1 tab PO BID PRN #10 tablet MDD 2 TABS 08/25/18 Acetaminophen/Caffeine/Butalb [Fioricet -] 1 tablet PO BID PRN #10 tablet MDD 2 tabs 08/25/18 acetaZOLAMIDE [Diamox Sequels -] 500 mg PO BID 08/25/18 metFORMIN HCL [Metformin HCl] 850 mg PO DAILY 08/25/18 Home Medications (free text): states her lips became tingy with Fiorecet, so stopped taking it. No rash, hives or shortness of breath. Family Disease History - Family Disease History Family Disease History: Other: Father (HTN), Mother (HTN) Review of Systems - Review of Systems Constitutional: reports: Other (persistent migranes) Eyes: reports: No Symptoms HENT: reports: Other Neck: reports: No Symptoms Cardiovascular: reports: No Symptoms Respiratory: reports: No Symptoms Gastrointestinal: reports: No Symptoms Genitourinary: reports: No Symptoms Breasts: reports: No Symptoms Reported Musculoskeletal: reports: No Symptoms Integumentary: reports: No Symptoms Neurological: reports: No Symptoms, Other Endocrine: reports: No Symptoms Hematology/Lymphatic: reports: No Symptoms Psychiatric: reports: No Symptoms Physical Examination Vital Signs: Vital Signs Temperature 97.8 F 08/27/18 16:13 Pulse Rate 60 08/27/18 16:13 Respiratory Rate 20 08/27/18 16:13 Blood Pressure 117/69 08/27/18 16:13 O2 Sat by Pulse Oximetry (%) 100 08/27/18 14:58 Constitutional: Yes: Calm Eyes: Yes: WNL HENT: Yes: WNL Neck: Yes: WNL Cardiovascular: Yes: Regular Rate and Rhythm Respiratory: Yes: CTA Bilaterally Gastrointestinal: Yes: WNL ...Rectal Exam: Yes: Deferred Breast(s): Yes: Other (deferred) Extremities: Yes: WNL Edema: No Integumentary: Yes: WNL Neurological: Yes: Alert, Oriented ...Motor Strength: WNL Psychiatric: Yes: WNL Labs: CBC, BMP 08/27/18 05:17 08/27/18 05:17 Problem List - Problems (1) Migraine Code(s): G43.909 - MIGRAINE, UNSP, NOT INTRACTABLE, WITHOUT STATUS MIGRAINOSUS Qualifiers: Migraine type: with aura Status migrainosus presence: with status migrainosus Intractability: intractable Qualified Code(s): G43.111 - Migraine with aura, intractable, with status migrainosus (2) Persistent headaches Code(s): R51 - HEADACHE (3) Pseudotumor cerebri Code(s): G93.2 - BENIGN INTRACRANIAL HYPERTENSION (4) PCOS (polycystic ovarian syndrome) Code(s): E28.2 - POLYCYSTIC OVARIAN SYNDROME Assessment/Plan Patient is a 17 year old female with a significant past medical history of PCOS , migraines, pseudotumor cerebri who returns to the ED with c/o of migrane headache and chest pain. Patient reports persistent headaches throughout the day and persistent since last night. Headache is global 10/10 with photophobia , nausea and vomiting. No visual defect, denies tunneled vision or blurred vision. For the chest pain, she currently states it is resolved, but in the past, chest pain has preceded the onset of migranes headache. She attempted to take the Fiorocet at home, but has since stopped taking it as it made her lips tingle. She did not have any lip swelling, nor tongue swelling. Did not have any shortness of breath. In the ED she was evaluated and was given reglan, benadryl, toradol, morphine and normal saline boluses. Her symptoms continued and she was placed under observation for further workup. Patient reports one episode of nonbilious nonbloody vomiting today. Patient has a recent diagnosis of a pseudotumer per chart. Patient reports compliance with Diamox since recent discharge, but the Fiorecet has been stopped since it made her lips tingle. She is s/p lumbar puncture on 08/13/2018 with an elevated pressure to 39 and was diagnosed with benign intracranial hypertension and started on Diamox. She was seen and evaluated by neurology, recommendations noted and recommended medications entered into the EMAR. Neuro: Migranes On Diamox 500mg bid Valporic acid IV TID Reglan and Benadryl Monitor symptoms : PCOS On daily metformin 750mg. Card: Chest pain chest pain precipitates headaches, denies chest pain or shortness of breath currently. Chest xray without acute pathology Trop negative, will repeat No ekg changes fen continue to gently hydrate with NS @ 50cc/hr x 24 hours monitor electrolytes low salt diet prophy deferred as LOS likely <48 hours. full code Visit type - Emergency Visit Emergency Visit: Yes ED Registration Date: 08/27/18 Care time: The patient presented to the Emergency Department on the above date and was hospitalized for further evaluation of their emergent condition. - New Patient This patient is new to me today: Yes Date on this admission: 08/27/18 - Critical Care Critical Care patient: No
[2018-08-27] MEDS ORDERED: ACETAMINOPHEN 325 MG TABLET (FP) PO PRN (16:44)
[2018-08-27] MEDS ORDERED: SODIUM CHLORIDE 1,000 ML IV SCH (18:00)
[2018-08-27] MEDS: diphenhydrAMINE HCL 25 MG CAPSULE (FP) PO PRN (19:02)
[2018-08-27] MEDS ORDERED: PT OWN MED DRAWER 7, Y5N ONE (21:57)
[2018-08-27] MEDS: acetaZOLAMIDE 250 MG TABLET PO SCH (22:52)
[2018-08-28] MEDS: VALPROATE SODIUM 500 MG/5 ML VIAL IVPB SCH (07:10)
[2018-08-28] MEDS ORDERED: PT OWN MED DRAWER 7, Y5N ONE ×2 (09:58→13:34)
[2018-08-28 10:00] LABS: BASO % 0.4 % (0-2.0); EOS % 1.3 % (0-4.5); HEMATOCRIT 37.5 % (32.4-45.2); HEMOGLOBIN 12.6 GM/dL (10.7-15.3); LYMPH % 44.9 % (8-40); MCH 29.1 pg (25.7-33.7); MCHC 33.7 g/dl (32.0-36.0); MEAN CELL VOLUME 86.4 fl (80-96); MEAN PLT VOLUME 9.2 fl (7.5-11.1); NEUT % 46.4 % (42.8-82.8); PLATELET COUNT 233 K/MM3 (134-434); RBC 4.33 M/mm3 (3.60-5.2); RDW 13.6 % (11.6-15.6); WHITE BLOOD COUNT 6.7 K/mm3 (4.0-10.0)
[2018-08-28] MEDS: acetaZOLAMIDE 250 MG TABLET PO SCH (10:11)
[2018-08-28 10:20] LABS: ALBUMIN 3.6 g/dl (3.4-5.0); ALK PHOS 106 U/L (45-117); ANION GAP 9 MMOL/L (8-16); BILIRUBIN,TOTAL 0.3 mg/dL (0.2-1); BLOOD UREA NITROGEN 14 mg/dL (7-18); CALCIUM 8.7 mg/dL (8.5-10.1); CHLORIDE 113 mmol/L (98-107); CO2 21 mmol/L (21-32); CREATININE 0.7 mg/dL (0.55-1.3); GLUCOSE,RANDOM 105 mg/dL (74-106); POTASSIUM 3.7 mmol/L (3.5-5.1); SGOT/AST 12 U/L (15-37); SGPT/ALT 37 U/L (13-61); SODIUM 143 mmol/L (136-145); TOT PROT 6.6 g/dl (6.4-8.2)
[2018-08-28] MEDS: diphenhydrAMINE HCL 25 MG CAPSULE (FP) PO PRN (11:32)
[2018-08-28 12:26] VITALS: BP 100/39; PULSE 68; TEMP 97.7
--- NOTE | 2018-08-28 12:42 | PN ---
Progress Note, Physician History of Present Illness: ISTORY OF PRESENT ILLNESS: 17-year-old female with past medical history of PCOS , migraines, pseudotumor cerebri recently dx. OP on 08/13/18-39, placed on Diamox.presents emergency Department for headache and chest pain throughout the day today. Reports ALVARES is persistent since last night, bitemporal, 10/10 intensity with photophobia/n/v, denies blurred vision, has her typical chest pain preceeding onset of ALVARES but last night had perioral tingling that she attributes to fioricet(this has resolved). Denies visual symptoms/neck pain/ tinnitus(no sx.of benign intracranial HTN). Patient states this is her usual migraine pattern where she has diffuse chest pain, with an escalating headache. Patient currently rates her pain 8/10 and reports 1 episode of nonbilious nonbloody vomiting. Patient was seen and evaluated here when she was diagnosed with a pseudotumor. Patient reports compliance with Diamox and Fioricet as outpatient since recent discharge. Patient denies any blurry vision, dizziness. This is her 3rd visit to ER in last few days. Today reports her headache is"only a little", feels Depacon hashelped her, no n/ v Exam-without focality. Suggest: If medically clear can be discharged home on Diamox 500mg bid, would add Topamax 25mg bid to prophylax migraine, Naproxyn 500mg prn migraine headache and she will call Dr. Fischer's office for f/u. Thank you, Teressa Sparks MD - Current Medication List Current Medications: Active Medications Acetaminophen (Tylenol -) 650 mg PO Q6H PRN PRN Reason: HEADACHE Acetazolamide (Diamox -) 500 mg PO BID [facility] Last Admin: 08/28/18 10:11 Dose: 500 mg Diphenhydramine HCl (Benadryl -) 25 mg PO Q6H PRN PRN Reason: migranes Last Admin: 08/28/18 11:32 Dose: 25 mg Sodium Chloride (Normal Saline -) 1,000 mls @ 50 mls/hr IV ASDIR [facility] Stop: 08/28/18 17:49 Last Admin: 08/27/18 18:05 Dose: 50 mls/hr Metformin HCl (Glucophage -) 850 mg PO DAILY@0700 [facility] Last Admin: 08/28/18 10:12 Dose: 850 mg Metoclopramide HCl (Reglan -) 10 mg PO TID PRN PRN Reason: migranes and nausea Valproate Sodium (Depacon Injection -) 500 mg IVPB TID [facility] Last Admin: 08/28/18 07:10 Dose: Not Given - Objective Vital Signs: Vital Signs Temperature 97.7 F 08/28/18 07:50 Pulse Rate 68 08/28/18 07:50 Respiratory Rate 18 08/28/18 07:50 Blood Pressure 100/39 L 08/28/18 07:50 O2 Sat by Pulse Oximetry (%) 100 08/27/18 21:00 Labs: CBC, BMP 08/28/18 09:15 08/28/18 09:15
--- NOTE | 2018-08-28 14:27 | DS ---
Physical Exam: SUBJECTIVE: Patient seen and examined OBJECTIVE: Vital Signs Period Temp Pulse Resp BP Sys/Ardon Pulse Ox Last 24 Hr 97.7 F-98.4 F 60-78 18-20 100-117/39-69 100-100 PHYSICAL EXAM GENERAL: The patient is awake, alert, and fully oriented, in no acute distress. HEAD: Normal with no signs of trauma. EYES: PERRL, extraocular movements intact, sclera anicteric, conjunctiva clear. ENT: Ears normal, nares patent, oropharynx clear without exudates, moist mucous membranes. NECK: Trachea midline, full range of motion, supple. LUNGS: Breath sounds equal, clear to auscultation bilaterally, no wheezes, no crackles, no accessory muscle use. HEART: Regular rate and rhythm, S1, S2 without murmur, rub or gallop. ABDOMEN: Soft, nontender, nondistended, normoactive bowel sounds, no guarding, no rebound, no hepatosplenomegaly, no masses. EXTREMITIES: 2+ pulses, warm, well-perfused, no edema. NEUROLOGICAL: Cranial nerves II through XII grossly intact. Normal speech, gait not observed. PSYCH: Normal mood, normal affect. SKIN: Warm, dry, normal turgor, no rashes or lesions noted. LABS Laboratory Results - last 24 hr 08/27/18 08/28/18 08/28/18 18:58 09:15 09:15 WBC 6.7 RBC 4.33 Hgb 12.6 Hct 37.5 MCV 86.4 MCH 29.1 MCHC 33.7 RDW 13.6 Plt Count 233 MPV 9.2 Absolute Neuts (auto) 3.1 Neutrophils % 46.4 D Lymphocytes % 44.9 H D Monocytes % 7.0 Eosinophils % 1.3 D Basophils % 0.4 Nucleated RBC % 0 Sodium 143 Potassium 3.7 Chloride 113 H Carbon Dioxide 21 Anion Gap 9 BUN 14 Creatinine 0.7 Creat Clearance w eGFR > 60 Random Glucose 105 Calcium 8.7 Total Bilirubin 0.3 AST 12 L ALT 37 Alkaline Phosphatase 106 Troponin I < 0.02 Total Protein 6.6 Albumin 3.6 HOSPITAL COURSE: Date of Admission:08/27/18 Date of Discharge: 08/28/18 Discharge Summary Reason For Visit: PERSISTENT HEADACHE BENIGN INTERCRANIAL HYPERTENSI Current Active Problems Migraine (Acute) Persistent headaches (Acute) Pseudotumor cerebri (Acute) Condition: Improved - Instructions Diet, Activity, Other Instructions: Ms Garcia: You were placed under observation for migranes. You will be sent home today with the following medications and recommendations: Medications: Take Diamox 500mg twice per day at 8am and 8pm Topamax 25mg twice per day at 8am and 8pm Naproxyn 500mg as needed for headaches. Continue your home medications. Stop taking the Fiorecet. Please call Dr. Fischer's office for a follow up appointment. Please return to the ED if your symptoms worsen or persist. Dianelys Miller [place] [employer] [facility] [phone] Referrals: Pablo Fischer MD [Staff Physician] - Disposition: HOME - Home Medications Comprehensive Discharge Medication List: Ambulatory Orders Acetaminophen/Caffeine/Butalb [Fioricet -] 1 tab PO BID PRN #10 tablet MDD 2 TABS 08/25/18 Acetaminophen/Caffeine/Butalb [Fioricet -] 1 tablet PO BID PRN #10 tablet MDD 2 tabs 08/25/18 acetaZOLAMIDE [Diamox Sequels -] 500 mg PO BID 08/25/18 metFORMIN HCL [Metformin HCl] 850 mg PO DAILY 08/25/18 Problem List - Problems (1) Migraine Code(s): G43.909 - MIGRAINE, UNSP, NOT INTRACTABLE, WITHOUT STATUS MIGRAINOSUS Qualifiers: Migraine type: with aura Status migrainosus presence: with status migrainosus Intractability: intractable Qualified Code(s): G43.111 - Migraine with aura, intractable, with status migrainosus (2) Persistent headaches Code(s): R51 - HEADACHE (3) Pseudotumor cerebri Code(s): G93.2 - BENIGN INTRACRANIAL HYPERTENSION (4) PCOS (polycystic ovarian syndrome) Code(s): E28.2 - POLYCYSTIC OVARIAN SYNDROME
--- NOTE | 2018-08-28 15:37 | DS ---
Physical Examination Vital Signs: Vital Signs Temperature 97.7 F 08/28/18 07:50 Pulse Rate 68 08/28/18 07:50 Respiratory Rate 18 08/28/18 07:50 Blood Pressure 100/39 L 08/28/18 07:50 O2 Sat by Pulse Oximetry (%) 100 08/27/18 21:00 Constitutional: Yes: Well Nourished, No Distress, Calm Eyes: Yes: WNL HENT: Yes: WNL Neck: Yes: WNL Cardiovascular: Yes: Regular Rate and Rhythm Respiratory: Yes: Regular Gastrointestinal: Yes: WNL, Normal Bowel Sounds, Abdomen, Obese ...Rectal Exam: Yes: Deferred Integumentary: Yes: WNL Wound/Incision: Yes: Clean/Dry Neurological: Yes: WNL, Alert, Oriented ...Motor Strength: WNL Psychiatric: Yes: WNL Labs: CBC, BMP 08/28/18 09:15 08/28/18 09:15 Discharge Summary Reason For Visit: PERSISTENT HEADACHE BENIGN INTERCRANIAL HYPERTENSI Current Active Problems Migraine (Acute) Persistent headaches (Acute) Pseudotumor cerebri (Acute) Condition: Improved - Instructions Diet, Activity, Other Instructions: Ms Garcia: You were placed under observation for migranes. You will be sent home today with the following medications and recommendations by neurologist: Medications: Take Diamox 500mg twice per day at 8am and 8pm Topamax 25mg twice per day at 8am and 8pm Naproxyn 500mg as needed for headaches. Continue your home medications. Stop taking the Fiorecet. Please call Dr. Fischer's office for a follow up appointment. Please return to the ED if your symptoms worsen or persist. Dianelys Tafoya MARKETING SERVICES COORDINATOR [facility] [phone] Referrals: Pablo Fischer MD [Staff Physician] - Disposition: HOME - Home Medications Comprehensive Discharge Medication List: Ambulatory Orders metFORMIN HCL [Metformin HCl] 850 mg PO DAILY 08/25/18 Topiramate [Topamax] 25 mg PO BID #60 tablet 08/28/18 acetaZOLAMIDE [Diamox -] 500 mg PO BID #60 tablet MDD 2 08/28/18 Patient is a 17 year old female with a significant past medical history of PCOS , migraines, pseudotumor cerebri who returns to the ED with c/o of migrane headache and chest pain. Patient reports persistent headaches throughout the day and persistent since last night. Headache is global 10/10 with photophobia , nausea and vomiting. No visual defect, denies tunneled vision or blurred vision. For the chest pain, she currently states it is resolved, but in the past, chest pain has preceded the onset of migranes headache. She attempted to take the Fiorocet at home, but has since stopped taking it as it made her lips tingle. She did not have any lip swelling, nor tongue swelling. Did not have any shortness of breath. In the ED she was evaluated and was given reglan, benadryl, toradol, morphine and normal saline boluses. Her symptoms continued and she was placed under observation for further workup. HOSPITAL COURSE BY PROBLEM LIST. Neuro: Migranes, resolved. to be sent home on On Diamox 500mg bid Topamax 25mg BID Outpatient follow up with Dr. Aaliyah GLOVER: PCOS On daily metformin 750mg. Card: Chest pain, resolved rop negative, No ekg changes This patient is new to me today: No Emergency Visit: Yes ED Registration Date: 08/27/18 Care time: The patient presented to the Emergency Department on the above date and was hospitalized for further evaluation of their emergent condition. Critical Care patient: No - Discharge Referral Referred to [facility] No
== END 2018-08-28 16:25 | disposition home or self-care (01) ==
LOC: JER 03:17 → JERBED 06:04 → J8W 17:28
PROVIDERS: ADMIT Internal Medicine; ATTEND Nurse Practitioner Family
PROC: 3E0333Z Introduction of Anti-inflammatory into Peripheral Vein, Percutaneous Approach (ICD-10-PCS; principal; 2018-08-27)
PROC: 3E033NZ Introduction of Analgesics, Hypnotics, Sedatives into Peripheral Vein, Percutaneous Approach (ICD-10-PCS; 2018-08-27)
PROC: 3E0337Z Introduction of Electrolytic and Water Balance Substance into Peripheral Vein, Percutaneous Approach (ICD-10-PCS; 2018-08-27)
PROC: 3E033GC Introduction of Other Therapeutic Substance into Peripheral Vein, Percutaneous Approach (ICD-10-PCS; 2018-08-27)
DX: G43.111 Migraine with aura, intractable, with status migrainosus (principal); G93.2 Benign intracranial hypertension; E28.2 Polycystic ovarian syndrome; Z79.84 Long term (current) use of oral hypoglycemic drugs
CPT/HCPCS: 36415; 71045-TC-FY; 80053; 81003; 81015; 84484; 84703; 85025; 93005; 93010; 96361; 96374; 96375; 99285-25; G0378; J7030